=== PATIENT | female | born 1950 | race American Indian/Alaskan Native ===

== ENCOUNTER 2019-07-15 23:21 | Inpatient (IN) | payer MEDICARE ==
[2019-07-15] MEDS ORDERED: IPRATROPIUM 0.02% NEBU 2.5 ML IH ONE (23:36)
[2019-07-15] MEDS ORDERED: ALBUTEROL 2.5 MG/3 ML NEBU IH ONE (23:36)
[2019-07-15] MEDS ORDERED: MAGNESIUM SULFATE 2 GM/50 ML BAG IV ONE (23:37)
[2019-07-15] MEDS ORDERED: methylPREDNISolone Sod Succinate 125 MG/2 ML INJ IV ONE (23:37)
--- NOTE | 2019-07-15 23:44 | Emergency Department Report ---
HPI - General Time Seen by Provider: 07/15/19 23:29 - HPI HPI: Room 2 The patient is a 69-year-old female presenting with a chief complaint of shortness of breath. The patient states she's had progressively worsening shortness of breath over the past 2-3 weeks. Patient denies cough or chest pain. Patient states her home oxygen stop working and EMS was called. EMS states the patient was tachypneic was initially placed on CPAP and her symptoms improved. Location: [See above] Duration: [See above] Quality: [See above] Severity: [See above] Timing: [See above] Context: [See above] Modifying factors: [See above] Associated signs and symptoms: [see above] ED Past Medical Hx - Past Medical History Hx Hypertension: Yes Hx Congestive Heart Failure: Yes Hx Diabetes: Yes Hx of Cancer: Yes (breast CA status post mastectomy) Hx Asthma: Yes Hx COPD: Yes (normally 2-3 L home O2) Hx Dementia: Yes Additional medical history: breast cancer/MATT - Surgical History Hx Breast Surgery: Yes (R mastectomy) - Family History Family history: no significant - Social History Smoking Status: Unknown if ever smoked Substance Use Type: None - Medications Home Medications: Home Medications Medication Instructions Recorded Confirmed Last Taken Type Aspirin 325 mg PO QDAY 06/14/19 06/14/19 Unknown History Atorvastatin [Lipitor] 40 mg PO QHS 06/14/19 06/14/19 Unknown History Furosemide [Lasix TAB] 40 mg PO QDAY #30 tablet 06/14/19 Unknown Rx Metoprolol [Lopressor TAB] 25 mg PO BID #60 tablet 06/14/19 Unknown Rx Spironolactone [Aldactone] 50 mg PO DAILY 06/14/19 06/14/19 Unknown History lisinopriL [Zestril TAB] 10 mg PO QDAY #30 tablet 06/14/19 Unknown Rx ED Review of Systems ROS: Stated complaint: KALEB Other details as noted in HPI Constitutional: no symptoms reported Eyes: denies: eye pain ENT: denies: throat pain Respiratory: shortness of breath. denies: cough Cardiovascular: denies: chest pain Endocrine: no symptoms reported Gastrointestinal: denies: abdominal pain Genitourinary: denies: dysuria Musculoskeletal: denies: back pain Neurological: denies: headache Physical Exam - Physical Exam Physical Exam: GENERAL: The patient is well-developed well-nourished female sitting on stretcher exhibiting increased work of breathing. [] HEENT: Normocephalic. Atraumatic. Extraocular motions are intact. Patient has moist mucous membranes. NECK: Supple. Trachea midline CHEST/LUNGS: Diminished breath sounds at bilateral bases. No wheezing auscultated. There is increased work of breathing HEART/CARDIOVASCULAR: Regular. There is tachycardia. There is no gallop rub or murmur. ABDOMEN: Abdomen is soft, nontender. Patient has normal bowel sounds. There is no abdominal distention. SKIN: There is no rash. There is 1+ bilateral lower extremity pitting edema. There is no diaphoresis. NEURO: The patient is awake, alert, and oriented. The patient is cooperative. The patient has normal speech MUSCULOSKELETAL: There is no evidence of acute injury. ED Medical Decision Making - Lab Data Result diagrams: 07/15/19 23:41 07/15/19 23:41 Laboratory Tests 07/15/19 07/15/19 23:41 23:41 WBC 5.3 RBC 4.80 Hgb 12.7 Hct 39.8 MCV 83 MCH 26 L MCHC 32 RDW 18.0 H Plt Count 167 Lymph % (Auto) 38.2 H Coal % (Auto) 11.7 H Eos % (Auto) 1.9 Baso % (Auto) 0.8 Lymph # 2.0 Coal # 0.6 Eos # 0.1 Baso # 0.0 Seg Neutrophils % 47.4 Seg Neutrophils # 2.5 Sodium 142 Potassium 3.7 Chloride 104.5 Carbon Dioxide 22 Anion Gap 19 BUN 15 Creatinine 1.1 Estimated GFR 59 BUN/Creatinine Ratio 14 Glucose 177 H Calcium 9.4 Total Creatine Kinase 65 CK-MB (CK-2) 1.9 CK-MB (CK-2) Rel Index 2.9 Troponin T < 0.010 NT-Pro-B Natriuret Pep 03248 H - EKG Data -: EKG Interpreted by Me EKG shows normal: sinus rhythm Rate: tachycardia (115 bpm) - EKG Data When compared to previous EKG there are: no significant change Interpretation: unchanged when compared t (06/11/2019) - Radiology Data Radiology results: report reviewed (chest x-ray), image reviewed (chest x-ray) interpreted by me: Chest x-ray-[facility] [address] [place] [address] XRay Report Signed Patient: CONSUELO SHOOK MR#: [id number] [birth year] Acct:[id number] Age/Sex: 69 / F ADM Date: 07/15/19 Loc: ED Attending Dr: Ordering Physician: SALLY BARNARD MD Date of Service: 07/15/19 Procedure(s): XR chest 1V ap Accession Number(s): [id number] cc: SALLY BARNARD MD Fluoro Time In Minutes: CHEST 1 VIEW 07/15/2019 11:35 PM INDICATION / CLINICAL INFORMATION: sob. COMPARISON: One view of the chest from 06/12/2019. FINDINGS: SUPPORT DEVICES: None. HEART / MEDIASTINUM: Stable. LUNGS / PLEURA: Lung volumes are mildly reduced with generalized bilateral opacities. No significant pleural effusion. No pneumothorax. ADDITIONAL FINDINGS: Clips are again seen along the right axilla. No significant additional findings. IMPRESSION: Bilateral pulmonary opacities may represent atelectasis/edema. Signer Name: Yaakov Huynh MD Signed: 07/15/2019 11:55 PM Workstation Name: [id number] Transcribed By: MN Dictated By: Yaakov Huynh MD Electronically Authenticated By: Yaakov Huynh MD Signed Date/Time: 07/15/192354 DD/ 53 TD/TT: - Differential Diagnosis CHF exacerbation, COPD exacerbation, pneumonia Critical care attestation.: If time is entered above; I have spent that time in minutes in the direct care of this critically ill patient, excluding procedure time. ED Disposition Clinical Impression: Shortness of breath, CHF exacerbation Disposition: - OP ADMIT IP TO THIS HOSP Is pt being admited?: Yes Does the pt Need Aspirin: No Condition: Fair Time of Disposition: 00:48 (hospitalist paged (Dr Resendiz))
--- NOTE | 2019-07-15 23:59 | XRay Report ---
CHEST 1 VIEW 07/15/2019 11:35 PM INDICATION / CLINICAL INFORMATION: sob. COMPARISON: One view of the chest from 06/12/2019. FINDINGS: SUPPORT DEVICES: None. HEART / MEDIASTINUM: Stable. LUNGS / PLEURA: Lung volumes are mildly reduced with generalized bilateral opacities. No significant pleural effusion. No pneumothorax. ADDITIONAL FINDINGS: Clips are again seen along the right axilla. No significant additional findings. IMPRESSION: Bilateral pulmonary opacities may represent atelectasis/edema. Signer Name: Yaakov Huynh MD Signed: 07/15/2019 11:55 PM Workstation Name: [id number]
[2019-07-16] LABS: Basophils % (Auto) 0.8 % (0.0-1.8); Eosinophils # (Auto) 0.1 K/mm3 (0.0-0.4); Eosinophils % (Auto) 1.9 % (0.0-4.3); Hematocrit 39.8 % (30.3-42.9); Hemoglobin 12.7 gm/dl (10.1-14.3); Lymphocytes % (Auto) 38.2 % (13.4-35.0); Mean Corpuscular HGB Conc 32 % (30-34); Mean Corpuscular Volume 83 fl (79-97); Monocytes # (Auto) 0.6 K/mm3 (0.0-0.8); Monocytes % (Auto) 11.7 % (0.0-7.3); Platelet Count 167 K/mm3 (140-440)
[2019-07-16] MEDS ORDERED: FUROSEMIDE 40 MG/4 ML INJ IV ONE (00:08)
[2019-07-16 00:18] LABS: Creatine Kinase MB 1.9 ng/mL (0.0-4.0)
[2019-07-16 00:19] LABS: BUN/Creatinine Ratio 14; Blood Urea Nitrogen 15 mg/dL (7-17); Calcium 9.4 mg/dL (8.4-10.2); Hemolysis Index 49
[2019-07-16] MEDS ORDERED: ALBUTEROL 2.5 MG/3 ML NEBU IH PRN (01:38)
[2019-07-16] MEDS ORDERED: ACETAMINOPHEN 325 MG TAB PO PRN (01:38)
[2019-07-16] MEDS ORDERED: ONDANSETRON 4 MG/2 ML INJ IV PRN (01:38)
[2019-07-16] MEDS ORDERED: DEXTROSE 50% IN WATER (25GM) 50 ML SYRINGE IV PRN (01:38)
[2019-07-16] MEDS ORDERED: oxyCODONE /ACETAMINOPHEN 5-325MG TAB PO PRN (01:38)
--- NOTE | 2019-07-16 01:47 | History and Physical Report ---
History of Present Illness Date of examination: 07/16/19 Date of admission: 07/16/19 Chief complaint: Difficulty breathing History of present illness: Patient is a 69-year-old female with a past medical history of hypertension, CHF, diabetes, asthma and COPD dependent on 2 L home oxygen who presents to ER with complaints of difficulty in breathing. Patient reports cough and shortness of breath x1 month with worsening dyspnea on exertion over the past 2 days. She was transported to [facility] via EMS, for increased work of breathing, on their arrival she was was put on BiPaP. Review of records 06/11/2019 showed patient was recently admitted with an EF 25-30%, noncompliant with treatment regimen, refused life vest on discharge and intubated on admission when she presented with acute respiratory failure. Past History Past Medical History: other (As noted in HPI) Past Surgical History: Other (R mastectomy) Social history: lives with family Family history: CAD, hypertension Medications and Allergies Allergies Allergy/AdvReac Type Severity Reaction Status Date / Time No Known Allergies Allergy Verified 06/12/19 17:57 Home Medications Medication Instructions Recorded Confirmed Last Taken Type Aspirin 325 mg PO QDAY 06/14/19 06/14/19 Unknown History Atorvastatin [Lipitor] 40 mg PO QHS 06/14/19 06/14/19 Unknown History Furosemide [Lasix TAB] 40 mg PO QDAY #30 tablet 06/14/19 Unknown Rx Metoprolol [Lopressor TAB] 25 mg PO BID #60 tablet 06/14/19 Unknown Rx Spironolactone [Aldactone] 50 mg PO DAILY 06/14/19 06/14/19 Unknown History lisinopriL [Zestril TAB] 10 mg PO QDAY #30 tablet 06/14/19 Unknown Rx Active Meds: Active Medications Acetaminophen (Tylenol) 650 mg PO Q4H PRN PRN Reason: Pain MILD(1-3)/Fever >100.5/PIERSON Albuterol (Proventil) 2.5 mg IH Q3HRT PRN PRN Reason: Shortness Of Breath Albuterol/Ipratropium (Duoneb *Not For Prn Use*) 1 ampul IH Q6HRT [facility] Dextrose (D50w (25gm) Syringe) 50 ml IV Q30MIN PRN; Protocol PRN Reason: Hypoglycemia Famotidine (Pepcid) 20 mg IV BID [facility] Furosemide (Lasix) 40 mg IV BID@0600,1800 [facility] Insulin Human Lispro (Humalog) 0 unit SUB-Q ACHS [facility]; Protocol Ondansetron HCl (Zofran) 4 mg IV Q8H PRN PRN Reason: Nausea And Vomiting Oxycodone/Acetaminophen (Percocet 5/325) 1 tab PO Q6H PRN PRN Reason: Pain, Moderate (4-6) Review of Systems All systems: negative Respiratory: cough, shortness of breath, dyspnea on exertion, home oxygen Exam - Physical Exam Narrative exam: - Physical Exam Narrative exam: General appearance: Present: Moderate distress noted - EENT Eyes: Present: PERRL ENT: hearing intact, clear oral mucosa - Neck Neck: Present: supple, normal ROM - Respiratory Respiratory effort: Labored Respiratory: bilateral: Diminished - Cardiovascular Heart Sounds: Present: S1 & S2. Absent: rub, click - Extremities Extremities: pulses symmetrical, No edema Peripheral Pulses: within normal limits - Abdominal General gastrointestinal: Present: , non-distended, normal bowel sounds genitourinary: Present: normal - Integumentary Integumentary: Present: clear, warm, dry - Musculoskeletal Musculoskeletal: gait normal, strength equal bilaterally - Psychiatric Psychiatric: appropriate mood/affect, intact judgment & insight - Neurologic Neurologic: CNII-XII intact, moves all extremities - Constitutional Vitals: Temp Pulse Resp BP Pulse Ox 96.3 F L 98 H 34 H 168/106 100 07/15/19 23:54 07/15/19 23:55 07/15/19 23:55 07/15/19 23:54 07/15/19 23:54 Results - Labs CBC & Chem 7: 07/15/19 23:41 07/15/19 23:41 Labs: Laboratory Last Values WBC 5.3 K/mm3 (4.5-11.0) 07/15/19 23:41 RBC 4.80 M/mm3 (3.65-5.03) 07/15/19 23:41 Hgb 12.7 gm/dl (10.1-14.3) 07/15/19 23:41 Hct 39.8 % (30.3-42.9) 07/15/19 23:41 MCV 83 fl (79-97) 07/15/19 23:41 MCH 26 pg (28-32) L 07/15/19 23:41 MCHC 32 % (30-34) 07/15/19 23:41 RDW 18.0 % (13.2-15.2) H 07/15/19 23:41 Plt Count 167 K/mm3 (140-440) 07/15/19 23:41 Lymph % (Auto) 38.2 % (13.4-35.0) H 07/15/19 23:41 Dickenson % (Auto) 11.7 % (0.0-7.3) H 07/15/19 23:41 Eos % (Auto) 1.9 % (0.0-4.3) 07/15/19 23:41 Baso % (Auto) 0.8 % (0.0-1.8) 07/15/19 23:41 Lymph # 2.0 K/mm3 (1.2-5.4) 07/15/19 23:41 Dickenson # 0.6 K/mm3 (0.0-0.8) 07/15/19 23:41 Eos # 0.1 K/mm3 (0.0-0.4) 07/15/19 23:41 Baso # 0.0 K/mm3 (0.0-0.1) 07/15/19 23:41 Seg Neutrophils % 47.4 % (40.0-70.0) 07/15/19 23:41 Seg Neutrophils # 2.5 K/mm3 (1.8-7.7) 07/15/19 23:41 Sodium 142 mmol/L (137-145) 07/15/19 23:41 Potassium 3.7 mmol/L (3.6-5.0) 07/15/19 23:41 Chloride 104.5 mmol/L (98-107) 07/15/19 23:41 Carbon Dioxide 22 mmol/L (22-30) 07/15/19 23:41 Anion Gap 19 mmol/L 07/15/19 23:41 BUN 15 mg/dL (7-17) 07/15/19 23:41 Creatinine 1.1 mg/dL (0.7-1.2) 07/15/19 23:41 Estimated GFR 59 ml/min 07/15/19 23:41 BUN/Creatinine Ratio 14 % 07/15/19 23:41 Glucose 177 mg/dL (65-100) H 07/15/19 23:41 Calcium 9.4 mg/dL (8.4-10.2) 07/15/19 23:41 Total Creatine Kinase 65 units/L (30-135) 07/15/19 23:41 CK-MB (CK-2) 1.9 ng/mL (0.0-4.0) 07/15/19 23:41 CK-MB (CK-2) Rel Index 2.9 (0-4) 07/15/19 23:41 Troponin T < 0.010 ng/mL (0.00-0.029) 07/15/19 23:41 NT-Pro-B Natriuret Pep 96928 pg/mL (0-900) H 07/15/19 23:41 - Imaging and Cardiology Imaging and Cardiology: CHEST 1 VIEW 07/15/2019 11:35 PM INDICATION / CLINICAL INFORMATION: sob. COMPARISON: One view of the chest from 06/12/2019. FINDINGS: SUPPORT DEVICES: None. HEART / MEDIASTINUM: Stable. LUNGS / PLEURA: Lung volumes are mildly reduced with generalized bilateral opacities. No significant pleural effusion. No pneumothorax. ADDITIONAL FINDINGS: Clips are again seen along the right axilla. No significant additional findings. IMPRESSION: Bilateral pulmonary opacities may represent atelectasis/edema. Assessment and Plan Assessment and plan: CHF exacerbation -BNP [id number] -Monitor input and output. -IV diuretics, supportive care -Cardiology consult -Echocardiogram ordered-EF 20-25% seen on Echo 06/12/2019 -Home meds once reconciled COPD - Scheduled nebs, breathing treatment and as needed, empiric steroid - Supplemental oxygen to keep oxygen saturation above 92% - Consider to consult pulmonary if no improvement in next 24 hours SIRS -CXR; Bilateral pulmonary opacities may represent atelectasis/edema -Tachycardic with heart rate 113 bpm -Respiratory rate 34 -May be due to inflammatory -Follow up on labs -Continue supportive care DM -POC BG monitoring -SSI coverage prn Hypertensive urgency -BP on admission 168/106 -Hx Hypertension -Continue to monitor BP -Resume home antihypertensive meds to optimize BP -IV antihypertensive when necessary Medical noncompliance; -Patient strongly advised complaincew w/ medications, diet and follow-up visits -Verbalized understanding DVT prophylaxis -SCDs bilateral extremities Advance Directives: No VTE prophylaxis?: Chemical Plan of care discussed with patient/family: Yes
[2019-07-16] MEDS ORDERED: IPRATROPIUM/ALBUTEROL SULFATE 3 ML AMPUL.NEB IH ONE (02:56)
[2019-07-16] MEDS: IPRATROPIUM/ALBUTEROL SULFATE 3 ML AMPUL.NEB IH SCH ×4 (02:56→20:27)
[2019-07-16] MEDS: FUROSEMIDE 40 MG/4 ML INJ IV SCH ×2 (05:50→17:50)
[2019-07-16] MEDS: FAMOTIDINE 20 MG/2 ML INJ IV SCH ×2 (09:48→21:33)
[2019-07-16] MEDS: INSULIN LISPRO 100 UNIT/ML SUB-Q SCH ×4 (09:48→21:33)
--- NOTE | 2019-07-16 10:38 | Consultation ---
History of Present Illness Consult date: 07/16/19 Requesting physician: ELHAM SLOAN Consult reason: congestive heart failure History of present illness: The pt is a 69 YO female with a past medical history of HTN, HLP, HFrEF, NICMP, nonobstructive CAD, LBBB, asthma, medical noncompliance. She has been seen by our practice on prior hospitalization. She presented with c/o progressively worsening SOB, CALDERA, orthopnea and cough for approx 1 month prior to arrival with worsening of symptoms for 2 days prior to arrival. Following arrival, pt found to be in acute on chronic respiratory failure and placed on BiPAP. She remains on BiPAP on evaluation. CXR c/w HF. Pro-BNP >11K. Pt admits to noncompliance with her medication regimen - she has been intermittently taking "some of the pills". She does not think she has been taking lasix at home. She denies any occurrence of chest pain, palpitation, n/v, diaphoresis, dizziness or syncope. Lexiscan MPI stress test done 06/2019 was negative for ischemia, EF 20%. LHC done at [facility] on 05/2019 showed mod single vessel CAD involving prox LAD with negative IFR, EF 15-20%. Echo done 06/2019 showed EF 25-30%, grade 2 diastolic dysfunction, no significant valvular abnormalities. Past History Past Medical History: other (As noted in HPI) Past Surgical History: Other (R mastectomy) Social history: lives with family Family history: CAD, hypertension Medications and Allergies Allergies Allergy/AdvReac Type Severity Reaction Status Date / Time No Known Allergies Allergy Verified 06/12/19 17:57 Home Medications Medication Instructions Recorded Confirmed Last Taken Type Aspirin 325 mg PO QDAY 06/14/19 06/14/19 Unknown History Atorvastatin [Lipitor] 40 mg PO QHS 06/14/19 06/14/19 Unknown History Furosemide [Lasix TAB] 40 mg PO QDAY #30 tablet 06/14/19 Unknown Rx Metoprolol [Lopressor TAB] 25 mg PO BID #60 tablet 06/14/19 Unknown Rx Spironolactone [Aldactone] 50 mg PO DAILY 06/14/19 06/14/19 Unknown History lisinopriL [Zestril TAB] 10 mg PO QDAY #30 tablet 06/14/19 Unknown Rx Active Meds: Active Medications Acetaminophen (Tylenol) 650 mg PO Q4H PRN PRN Reason: Pain MILD(1-3)/Fever >100.5/PIERSON Albuterol (Proventil) 2.5 mg IH Q3HRT PRN PRN Reason: Shortness Of Breath Albuterol/Ipratropium (Duoneb *Not For Prn Use*) 1 ampul IH Q6HRT [facility] Last Admin: 07/16/19 07:10 Dose: 1 ampul Documented by: Dextrose (D50w (25gm) Syringe) 0 ml IV Q30MIN PRN; Protocol PRN Reason: Hypoglycemia Famotidine (Pepcid) 20 mg IV BID [facility] Last Admin: 07/16/19 09:48 Dose: 20 mg Documented by: Furosemide (Lasix) 40 mg IV BID@0600,1800 [facility] Last Admin: 07/16/19 05:50 Dose: 40 mg Documented by: Insulin Human Lispro (Humalog) 0 unit SUB-Q ACHS [facility]; Protocol Last Admin: 07/16/19 09:48 Dose: 3 unit Documented by: Ondansetron HCl (Zofran) 4 mg IV Q8H PRN PRN Reason: Nausea And Vomiting Oxycodone/Acetaminophen (Percocet 5/325) 1 tab PO Q6H PRN PRN Reason: Pain, Moderate (4-6) Review of Systems Constitutional: no weight loss, no weight gain, no fever, no chills, no sweats Ears, nose, mouth and throat: no ear pain, no nose pain, no sinus pressure, no sinus pain Cardiovascular: orthopnea, shortness of breath, dyspnea on exertion, paroxysmal nocturnal dyspnea, high blood pressure, decreased exercise tolerance, no chest pain, no palpitations, no rapid/irregular heart beat, no edema, no syncope, no lightheadedness, no leg edema Respiratory: cough, shortness of breath, dyspnea on exertion, no congestion, no pain on inspiration Gastrointestinal: no abdominal pain, no nausea, no vomiting, no diarrhea, no constipation, no change in bowel habits Genitourinary Female: no pelvic pain, no flank pain, no dysuria, no urinary frequency, no urgency Musculoskeletal: no neck stiffness, no neck pain, no shooting arm pain, no arm numbness/tingling, no low back pain, no shooting leg pain Integumentary: no rash, no pruritis, no redness, no sores, no wounds Neurological: no head injury, no paralysis, no weakness, no parathesias, no numbness, no tingling, no seizures, no syncope Psychiatric: no anxiety Endocrine: no cold intolerance, no heat intolerance Hematologic/Lymphatic: no easy bruising, no easy bleeding Allergic/Immunologic: no urticaria Physical Examination Vital Signs Pulse Resp Pulse Ox 113 H 34 H 100 07/15/19 23:34 07/15/19 23:34 07/15/19 23:34 General appearance: no acute distress HEENT: Positive: PERRL, Normocephaly, Mucus Membranes Moist Neck: Positive: neck supple, trachea midline Cardiac: Positive: Reg Rate and Rhythm, S1/S2 Lungs: Positive: Decreased Breath Sounds, Oxygen, Ventilated Respirations Neuro: Positive: Grossly Intact Abdomen: Negative: Tender Skin: Negative: Rash Musculoskeletal: No Pain Extremities: Absent: edema Results 07/15/19 23:41 07/15/19 23:41 Cardiac Enzymes 07/15/19 Range/Units 23:41 CK-MB (CK-2) 1.9 (0.0-4.0) ng/mL CBC 07/15/19 Range/Units 23:41 WBC 5.3 (4.5-11.0) K/mm3 RBC 4.80 (3.65-5.03) M/mm3 Hgb 12.7 (10.1-14.3) gm/dl Hct 39.8 (30.3-42.9) % Plt Count 167 (140-440) K/mm3 Lymph # 2.0 (1.2-5.4) K/mm3 Love # 0.6 (0.0-0.8) K/mm3 Eos # 0.1 (0.0-0.4) K/mm3 Baso # 0.0 (0.0-0.1) K/mm3 Comprehensive Metabolic Panel 07/15/19 Range/Units 23:41 Sodium 142 (137-145) mmol/L Potassium 3.7 (3.6-5.0) mmol/L Chloride 104.5 (98-107) mmol/L Carbon Dioxide 22 (22-30) mmol/L BUN 15 (7-17) mg/dL Creatinine 1.1 (0.7-1.2) mg/dL Glucose 177 H (65-100) mg/dL Calcium 9.4 (8.4-10.2) mg/dL - Imaging and Cardiology Echo: report reviewed (06/2019 showed EF 25-30%, grade 2 diastolic dysfunction, no significant valvular abnormalities. ) Cardiac cath: report reviewed (done at [facility] on 05/2019 showed mod single vessel CAD involving prox LAD with negative IFR, EF 15-20%. ) EKG: report reviewed, image reviewed EKG interpretations - Telemetry EKG Rhythm: Sinus Rhythm - EKG Sinus rhythms and dysrhythmias: sinus rhythm AV and intraventricular conduction: left bundle branch block Assessment and Plan Agree with IV lasix BID. Initiate GDMT for HFrEF and titrate as tolerated. Compliance with medical therapy encouraged. Will also obtain dietitian consultation for HF and fluid restriction diet education. Consider pulmonary consultation in setting of acute on ? chronic respiratory failure. Of note, cardiac defibrillator has been recommended to pt on multiple encounters in setting of NICMP. Pt declines LifeVest and wishes to readdress AICD candidacy as OP - although she has been noncompliant with OP follow up thus far. The patient has been seen in conjunction with Dr. James who agrees with the assessment and plan of care. - Patient Problems (1) Acute HFrEF (heart failure with reduced ejection fraction) Current Visit: Yes Status: Acute (2) Nonischemic cardiomyopathy Current Visit: Yes Status: Chronic (3) LBBB (left bundle branch block) Current Visit: Yes Status: Chronic (4) Acute respiratory failure Current Visit: Yes Status: Acute (5) Uncontrolled hypertension Current Visit: Yes Status: Chronic (6) History of asthma Current Visit: Yes Status: Chronic (7) Hyperlipidemia Current Visit: Yes Status: Chronic (8) Medically noncompliant Current Visit: Yes Status: Chronic
[2019-07-16] MEDS: METOPROLOL SUCCINATE XL 50 MG TAB PO SCH (13:22)
--- NOTE | 2019-07-16 14:53 | Event Note ---
69-year-old woman with a past medical history of severe CHF, chronic respiratory failure on 2 L of oxygen at home. The patient has worsening dementia, she lives with her brothers. States that they are not taking care of her, did not take her to the pharmacy to get her medications. Spoke to the patient with a daughter in the bedroom. The daughter with like to consider taking her to her place. The patient was previously refusing, but she is now agreeable to it, because she realizes that she is in and out of hospital due to uncontrolled heart failure. Discussed CODE STATUS. Patient would like to be full code, she would like to be evaluated for ICD, she admits that she refused that many times previously. She is also very forgetful due to dementia. Her daughter would like APS report to be made on the brothers that the patient resides with. Discussed with case management. PT to see patient. Patient has history of MATT, has not used CPAP in quite a while because she no longer has the machine. Advised that she needs to follow-up with pulmonary as an outpatient, she will need sleep study. Family requesting STD testing including gonorrhea chlamydia hepatitis and HIV. They have been ordered. Acute on chronic CHF, systolic heart failure, continue diuretics, optimize meds. Reconsulted cardiology about ICD. Chronic hypoxic respiratory failure; continue oxygen Diabetes with persistent hyperglycemia Obtain A1c, optimize insulins. Patient reports being very sad and depressed Mental health consult Patient would like to make her children high next of kin and to allow them to make decisions for her when she is not able to make decisions for herself. Spoke to case management about making the patient's children her proxies. Preventative health counseling performed for 17 minutes Advanced care planning performed for over 30 minutes
[2019-07-16 16:09] LABS: Hepatitis B Surface Antigen Non-Reactive (Negative); Hepatitis C Virus Antibody Non-Reactive (NonReactive)
[2019-07-17] MEDS: IPRATROPIUM/ALBUTEROL SULFATE 3 ML AMPUL.NEB IH SCH ×4 (03:23→21:24)
[2019-07-17 04:56] LABS: Basophils # (Auto) 0.1 K/mm3 (0.0-0.1); Basophils % (Auto) 0.8 % (0.0-1.8); Eosinophils # (Auto) 0.1 K/mm3 (0.0-0.4); Eosinophils % (Auto) 1.1 % (0.0-4.3); Hematocrit 34.4 % (30.3-42.9); Hemoglobin 11.2 gm/dl (10.1-14.3); Lymphocytes % (Auto) 32.8 % (13.4-35.0); Mean Corpuscular HGB Conc 32 % (30-34); Mean Corpuscular Volume 82 fl (79-97); Monocytes # (Auto) 0.7 K/mm3 (0.0-0.8); Monocytes % (Auto) 12.4 % (0.0-7.3); Platelet Count 187 K/mm3 (140-440); Red Cell Distribution Width 17.9 % (13.2-15.2)
[2019-07-17 05:16] LABS: BUN/Creatinine Ratio 24; Blood Urea Nitrogen 19 mg/dL (7-17); Calcium 8.9 mg/dL (8.4-10.2); Hemolysis Index 20
[2019-07-17] MEDS ORDERED: POTASSIUM CHLORIDE ER 20 MEQ TAB PO ONE (06:47)
[2019-07-17] MEDS: FUROSEMIDE 40 MG/4 ML INJ IV SCH (06:48)
[2019-07-17] MEDS: INSULIN LISPRO 100 UNIT/ML SUB-Q SCH ×4 (07:58→21:19)
[2019-07-17] MEDS: METOPROLOL SUCCINATE XL 50 MG TAB PO SCH (09:58)
[2019-07-17] MEDS: FAMOTIDINE 20 MG/2 ML INJ IV SCH ×2 (09:59→21:16)
[2019-07-17] MEDS: LOSARTAN 25 MG TAB PO SCH (09:59)
[2019-07-17] MEDS: SPIRONOLACTONE 25 MG TAB PO SCH (09:59)
[2019-07-17] MEDS ORDERED: LISINOPRIL 10 MG TAB PO SCH (10:00)
--- NOTE | 2019-07-17 10:08 | Progress Note ---
<CAMMYDESIRAE ZAMAN - Last Filed: 07/17/19 10:51> Assessment and Plan Pt appears to be nearing/at euvolemia. Replete K+. Convert IV lasix to PO lasix. Cont coreg, losartan, aldactone. Plan to evaluate for AICD candidacy as OP. Anticipate d/c in AM. The patient has been seen in conjunction with Dr. James who agrees with the assessment and plan of care. - Patient Problems (1) Acute HFrEF (heart failure with reduced ejection fraction) Current Visit: Yes Status: Acute (2) Nonischemic cardiomyopathy Current Visit: Yes Status: Chronic (3) LBBB (left bundle branch block) Current Visit: Yes Status: Chronic (4) Acute respiratory failure Current Visit: Yes Status: Acute (5) Uncontrolled hypertension Current Visit: Yes Status: Chronic (6) History of asthma Current Visit: Yes Status: Chronic (7) Hyperlipidemia Current Visit: Yes Status: Chronic (8) Medically noncompliant Current Visit: Yes Status: Chronic (9) Hypokalemia Current Visit: Yes Status: Acute Subjective Date of service: 07/17/19 Principal diagnosis: HF Interval history: pt laying flat comfortably in bed, on room air, no current complaints. in SR on tele with [employer] PACs. no family at bedside. Objective Last Vital Signs Temp 97.5 F L 07/17/19 08:23 Pulse 64 07/17/19 08:28 Resp 18 07/17/19 08:23 BP 133/73 07/17/19 08:23 Pulse Ox 99 07/17/19 08:23 - Physical Examination General: No Apparent Distress HEENT: Positive: PERRL, Normocephaly, Mucus Membranes Moist Neck: Positive: neck supple, trachea midline Cardiac: Positive: Reg Rate and Rhythm, S1/S2 Lungs: Positive: Decreased Breath Sounds Neuro: Positive: Grossly Intact Abdomen: Negative: Tender Skin: Negative: Rash Musculoskeletal: No Pain Extremities: Absent: edema - Labs and Meds CBC 07/17/19 Range/Units 04:14 WBC 6.0 (4.5-11.0) K/mm3 RBC 4.20 (3.65-5.03) M/mm3 Hgb 11.2 (10.1-14.3) gm/dl Hct 34.4 (30.3-42.9) % Plt Count 187 (140-440) K/mm3 Lymph # 2.0 (1.2-5.4) K/mm3 [place] # 0.7 (0.0-0.8) K/mm3 Eos # 0.1 (0.0-0.4) K/mm3 Baso # 0.1 (0.0-0.1) K/mm3 Comprehensive Metabolic Panel 07/17/19 Range/Units 04:14 Sodium 143 (137-145) mmol/L Potassium 2.9 L* D (3.6-5.0) mmol/L Chloride 101.9 (98-107) mmol/L Carbon Dioxide 27 (22-30) mmol/L BUN 19 H (7-17) mg/dL Creatinine 0.8 (0.7-1.2) mg/dL Glucose 110 H (65-100) mg/dL Calcium 8.9 (8.4-10.2) mg/dL - Imaging and Cardiology EKG: report reviewed, image reviewed Echo: report reviewed (06/2019 showed EF 25-30%, grade 2 diastolic dysfunction, no significant valvular abnormalities. 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 ) - EKG Sinus rhythms and dysrhythmias: sinus rhythm AV and intraventricular conduction: left bundle branch block <CARMEN JAMES R - Last Filed: 07/17/19 11:34> Assessment and Plan hypokalemia, replace and check mg level Objective Vital Signs Temp Pulse Pulse Resp Resp BP Pulse Ox 07/17/19 08:28 64 07/17/19 08:23 97.5 F L 74 18 133/73 99 07/17/19 07:50 98 07/17/19 07:49 59 L 16 07/17/19 06:00 64 07/17/19 03:09 98.2 F 64 18 131/74 100 07/17/19 00:28 68 27 H 100 07/17/19 00:00 98.1 F 59 L 18 127/70 100 07/16/19 22:43 96 07/16/19 20:31 98 07/16/19 20:28 62 18 07/16/19 19:41 98.4 F 65 18 130/66 100 07/16/19 16:46 97.8 F 65 20 124/69 100 07/16/19 14:00 82 07/16/19 13:25 73 20 07/16/19 13:22 89 158/93 07/16/19 12:20 96 07/16/19 12:15 98.9 F 91 H 18 158/93 100 - Labs and Meds CBC 07/17/19 Range/Units 04:14 WBC 6.0 (4.5-11.0) K/mm3 RBC 4.20 (3.65-5.03) M/mm3 Hgb 11.2 (10.1-14.3) gm/dl Hct 34.4 (30.3-42.9) % Plt Count 187 (140-440) K/mm3 Lymph # 2.0 (1.2-5.4) K/mm3 [place] # 0.7 (0.0-0.8) K/mm3 Eos # 0.1 (0.0-0.4) K/mm3 Baso # 0.1 (0.0-0.1) K/mm3 Comprehensive Metabolic Panel 07/17/19 Range/Units 04:14 Sodium 143 (137-145) mmol/L Potassium 2.9 L* D (3.6-5.0) mmol/L Chloride 101.9 (98-107) mmol/L Carbon Dioxide 27 (22-30) mmol/L BUN 19 H (7-17) mg/dL Creatinine 0.8 (0.7-1.2) mg/dL Glucose 110 H (65-100) mg/dL Calcium 8.9 (8.4-10.2) mg/dL
[2019-07-17] MEDS ORDERED: POTASSIUM CHLORIDE ER 20 MEQ TAB PO SCH (10:30)
--- NOTE | 2019-07-17 10:59 | Consultation ---
History of Present Illness Consult date: 07/17/19 Requesting physician: CANDACE BETANCOURT Reason for consult: COPD History of present illness: 69 y/o female, known to me as we saw her last admission for acute respiratory failure secondary to pulmonary edema and volume overload. Patient has had several admissions to the hospitals in the last few months ([facility] and [facility]). She suffers from obstructive lung disease and is suppose to follow with the [facility] in [place]. She has yet to do so. PFT's done there confirm this. She also suffers from systolic heart failure. Admitted this time with volume overload and required bipap therapy which she has been weaned off of. Pulmonary consulted for this. Past History Past Medical History: COPD, heart failure Past Surgical History: Other (R mastectomy) Social history: lives with family Family history: CAD, hypertension Medications and Allergies Allergies Allergy/AdvReac Type Severity Reaction Status Date / Time No Known Allergies Allergy Verified 06/12/19 17:57 Home Medications Medication Instructions Recorded Confirmed Last Taken Type Aspirin 325 mg PO QDAY 06/14/19 07/17/19 Unknown History Atorvastatin [Lipitor] 40 mg PO QHS 06/14/19 07/17/19 Unknown History Furosemide [Lasix TAB] 40 mg PO QDAY #30 tablet 06/14/19 07/17/19 Unknown Rx Metoprolol [Lopressor TAB] 25 mg PO BID #60 tablet 06/14/19 07/17/19 Unknown Rx Spironolactone [Aldactone] 50 mg PO DAILY 06/14/19 07/17/19 Unknown History lisinopriL [Zestril TAB] 10 mg PO QDAY #30 tablet 06/14/19 07/17/19 Unknown Rx Active Meds: Active Medications Acetaminophen (Tylenol) 650 mg PO Q4H PRN PRN Reason: Pain MILD(1-3)/Fever >100.5/PIERSON Albuterol (Proventil) 2.5 mg IH Q3HRT PRN PRN Reason: Shortness Of Breath Albuterol/Ipratropium (Duoneb *Not For Prn Use*) 1 ampul IH Q6HRT [facility] Last Admin: 07/17/19 07:45 Dose: 1 ampul Documented by: Dextrose (D50w (25gm) Syringe) 0 ml IV Q30MIN PRN; Protocol PRN Reason: Hypoglycemia Famotidine (Pepcid) 20 mg IV BID [facility] Last Admin: 07/17/19 09:59 Dose: 20 mg Documented by: Furosemide (Lasix) 40 mg PO 0600,1800 [facility] Insulin Human Lispro (Humalog) 0 unit SUB-Q ACHS [facility]; Protocol Last Admin: 07/17/19 07:58 Dose: Not Given Documented by: Losartan Potassium (Cozaar) 25 mg PO QDAY [facility] Last Admin: 07/17/19 09:59 Dose: 25 mg Documented by: Metoprolol Succinate (Metoprolol Xl) 50 mg PO QDAY [facility] Last Admin: 07/17/19 09:58 Dose: 50 mg Documented by: Ondansetron HCl (Zofran) 4 mg IV Q8H PRN PRN Reason: Nausea And Vomiting Oxycodone/Acetaminophen (Percocet 5/325) 1 tab PO Q6H PRN PRN Reason: Pain, Moderate (4-6) Potassium Chloride (K-Dur) 40 meq PO ONCE [facility] Stop: 07/17/19 13:00 Spironolactone (Aldactone) 25 mg PO QDAY [facility] Last Admin: 07/17/19 09:59 Dose: 25 mg Documented by: Review of Systems All systems: negative Physical Examination Vital signs: Vital Signs Pulse Resp Pulse Ox 113 H 34 H 100 07/15/19 23:34 07/15/19 23:34 07/15/19 23:34 General appearance: no acute distress, alert Eyes: non-icteric ENT: oropharynx moist Neck: supple Effort: normal Ascultation: Bilateral: rales (bases) Percussion: Bilateral: not dull Tactile fremitus: Bilateral: normal Cardiovascular: regular rate and rhythm Gastrointestinal: normoactive bowel sounds Results - Laboratory Findings CBC and BMP: 07/17/19 04:14 07/18/19 04:00 Abnormal lab findings: Abnormal Labs 07/15/19 07/15/19 07/16/19 23:41 23:41 07:46 MCH 26 L RDW 18.0 H Lymph % (Auto) 38.2 H [place] % (Auto) 11.7 H Potassium BUN Glucose 177 H POC Glucose 256 H Hemoglobin A1c NT-Pro-B Natriuret Pep 45825 H 07/16/19 07/16/19 07/16/19 11:28 16:10 20:14 MCH RDW Lymph % (Auto) [place] % (Auto) Potassium BUN Glucose POC Glucose 300 H 204 H 142 H Hemoglobin A1c NT-Pro-B Natriuret Pep 07/17/19 07/17/19 07/17/19 04:14 04:14 04:14 MCH 27 L RDW 17.9 H Lymph % (Auto) [place] % (Auto) 12.4 H Potassium 2.9 L* D BUN 19 H Glucose 110 H POC Glucose Hemoglobin A1c 6.8 H NT-Pro-B Natriuret Pep 07/17/19 08:36 MCH RDW Lymph % (Auto) [place] % (Auto) Potassium BUN Glucose POC Glucose 126 H Hemoglobin A1c NT-Pro-B Natriuret Pep - Diagnostic Findings Chest x-ray: image reviewed (Cardiomegaly with pulmonary vascular congestion) Assessment and Plan 69 y/o female with acute respiratory failure secondary to volume overload and CHF exacerbation. 1. Not currently in COPD exacerbation, no indication for systemic steroids 2. Needs to follow up with outpatient pulmonary group ([facility] at [facility]) 3. Diruesis as per cards 4. Need to assess need for oxygen again prior to discharge.
--- NOTE | 2019-07-17 12:39 | Progress Note ---
Assessment and Plan Assessment and plan: --Acute on chronic systolic CHF : EF 20 to 25% IV diuretics, beta-blockers, ANYA inhibitors, input output monitoring Low-sodium diet, fluid restriction,Cardiology evaluation --Acute on chronic resp failure ; patient claims she has home oxygen Patient required BiPAP at the time of admission Pulmonary following. Continue current management Evaluation for home oxygen at discharge -- COPD ; compensated Scheduled nebs, breathing treatment and as needed, empiric steroid Supplemental oxygen to keep oxygen saturation above 92% Consider to consult pulmonary if no improvement in next 24 hours --SIRS CXR; Bilateral pulmonary opacities may represent atelectasis/edema Tachycardic with heart rate 113 bpm, Respiratory rate 34 Continue supportive care --DM: Accu-Chek sliding scale coverage ADA diet and insulin as needed --Hypertensive urgency ; present on admission, improved -BP on admission 168/106 Continue antihypertensives and PRN medications --Medical noncompliance; Strongly advised to comply with medications diet follow-up visits Verbalized understanding --DVT prophylaxis: Lovenox SCDs Advance Directives: No VTE prophylaxis?: Chemical Plan of care discussed with patient/family: Yes History Interval history: Patient seen and examined medical records reviewed Patient complains of some shortness of breath Very minimal improvement since admission Denies chest pain Vital signs reviewed Hospitalist Physical - Constitutional Vitals: Temp Pulse Resp BP Pulse Ox 98.4 F 64 16 123/74 95 07/17/19 11:56 07/17/19 11:56 07/17/19 11:56 07/17/19 11:56 07/17/19 11:56 General appearance: Present: mild distress, well-nourished - EENT Eyes: Present: PERRL, EOM intact - Neck Neck: Present: supple, normal ROM - Respiratory Respiratory effort: normal Respiratory: bilateral: diminished, rales, negative: rhonchi, wheezing - Cardiovascular Rhythm: regular Heart Sounds: Present: S1 & S2 - Extremities Extremities: no ischemia Extremity abnormal: edema - Abdominal General gastrointestinal: soft, non-tender, non-distended, normal bowel sounds - Integumentary Integumentary: Present: clear, warm - Psychiatric Psychiatric: appropriate mood/affect, cooperative - Neurologic Neurologic: moves all extremities Results - Labs CBC & Chem 7: 07/17/19 04:14 07/18/19 04:00 Labs: Laboratory Last Values WBC 6.0 K/mm3 (4.5-11.0) 07/17/19 04:14 RBC 4.20 M/mm3 (3.65-5.03) 07/17/19 04:14 Hgb 11.2 gm/dl (10.1-14.3) 07/17/19 04:14 Hct 34.4 % (30.3-42.9) 07/17/19 04:14 MCV 82 fl (79-97) 07/17/19 04:14 MCH 27 pg (28-32) L 07/17/19 04:14 MCHC 32 % (30-34) 07/17/19 04:14 RDW 17.9 % (13.2-15.2) H 07/17/19 04:14 Plt Count 187 K/mm3 (140-440) 07/17/19 04:14 Lymph % (Auto) 32.8 % (13.4-35.0) 07/17/19 04:14 [place] % (Auto) 12.4 % (0.0-7.3) H 07/17/19 04:14 Eos % (Auto) 1.1 % (0.0-4.3) 07/17/19 04:14 Baso % (Auto) 0.8 % (0.0-1.8) 07/17/19 04:14 Lymph # 2.0 K/mm3 (1.2-5.4) 07/17/19 04:14 [place] # 0.7 K/mm3 (0.0-0.8) 07/17/19 04:14 Eos # 0.1 K/mm3 (0.0-0.4) 07/17/19 04:14 Baso # 0.1 K/mm3 (0.0-0.1) 07/17/19 04:14 Seg Neutrophils % 52.9 % (40.0-70.0) 07/17/19 04:14 Seg Neutrophils # 3.2 K/mm3 (1.8-7.7) 07/17/19 04:14 Sodium 143 mmol/L (137-145) 07/17/19 04:14 Potassium 2.9 mmol/L (3.6-5.0) L* D 07/17/19 04:14 Chloride 101.9 mmol/L (98-107) 07/17/19 04:14 Carbon Dioxide 27 mmol/L (22-30) 07/17/19 04:14 Anion Gap 17 mmol/L 07/17/19 04:14 BUN 19 mg/dL (7-17) H 07/17/19 04:14 Creatinine 0.8 mg/dL (0.7-1.2) 07/17/19 04:14 Estimated GFR > 60 ml/min 07/17/19 04:14 BUN/Creatinine Ratio 24 % 07/17/19 04:14 Glucose 110 mg/dL (65-100) H 07/17/19 04:14 POC Glucose 126 (70-105) H 07/17/19 08:36 Hemoglobin A1c 6.8 % (4-6) H 07/17/19 04:14 Calcium 8.9 mg/dL (8.4-10.2) 07/17/19 04:14 Total Creatine Kinase 65 units/L (30-135) 07/15/19 23:41 CK-MB (CK-2) 1.9 ng/mL (0.0-4.0) 07/15/19 23:41 CK-MB (CK-2) Rel Index 2.9 (0-4) 07/15/19 23:41 Troponin T < 0.010 ng/mL (0.00-0.029) 07/15/19 23:41 NT-Pro-B Natriuret Pep 23891 pg/mL (0-900) H 07/15/19 23:41 Syphilis IgG Antibody Non-reactive (NonReactive) 07/16/19 15:25 Hepatitis A IgM Ab Non-reactive (NonReactive) 07/16/19 15:25 Hep Bs Antigen Non-reactive (Negative) 07/16/19 15:25 Hep B Core IgM Ab Non-reactive (NonReactive) 07/16/19 15:25 Hepatitis C Antibody Non-reactive (NonReactive) 07/16/19 15:25 Active Medications - Current Medications Current Medications: Generic Name Dose Route Start Last Admin Trade Name Freq PRN Reason Stop Dose Admin Acetaminophen 650 mg 07/16/19 01:38 Tylenol PO Q4H PRN Pain MILD(1-3)/Fever >100.5/PIERSON Albuterol 2.5 mg 07/16/19 01:38 Proventil IH Q3HRT PRN Shortness Of Breath Albuterol/Ipratropium 1 ampul 07/16/19 02:00 07/17/19 07:45 Duoneb *Not For Prn Use* IH 1 ampul Q6HRT [facility] Administration Dextrose 0 ml 07/16/19 01:38 D50w (25gm) Syringe IV Q30MIN PRN Hypoglycemia Protocol Famotidine 20 mg 07/16/19 10:00 07/17/19 09:59 Pepcid IV 20 mg BID [facility] Administration Furosemide 40 mg 07/17/19 18:00 Lasix PO 0600,1800 [facility] Insulin Human Lispro 0 unit 07/16/19 07:30 07/17/19 07:58 Humalog SUB-Q Not Given ACHS [facility] Protocol Losartan Potassium 25 mg 07/17/19 10:00 07/17/19 09:59 Cozaar PO 25 mg QDAY [facility] Administration Metoprolol Succinate 50 mg 07/16/19 11:00 07/17/19 09:58 Metoprolol Xl PO 50 mg QDAY [facility] Administration Ondansetron HCl 4 mg 07/16/19 01:38 Zofran IV Q8H PRN Nausea And Vomiting Oxycodone/Acetaminophen 1 tab 07/16/19 01:38 Percocet 5/325 PO Q6H PRN Pain, Moderate (4-6) Potassium Chloride 40 meq 07/17/19 10:30 K-Dur PO 07/17/19 13:00 ONCE [facility] Spironolactone 25 mg 07/17/19 10:00 07/17/19 09:59 Aldactone PO 25 mg QDAY [facility] Administration Nutrition/Malnutrition Assess - Dietary Evaluation Nutrition/Malnutrition Findings: Nutrition Notes Start: 07/17/19 11:02 Freq: Status: Active Protocol: Document 07/17/19 11:02 CC (Rec: 07/17/19 11:14 CC [id number]) Co-Sign 07/17/19 11:02 LP Nutrition Notes Need for Assessment generated from: MD Order,Education Initial or Follow up Assessment Current Diagnosis COPD,Diabetes,Hypertension, Heart Failure Other Pertinent Diagnosis Dementia, pneu, asthma Current Diet Const CHO Labs/Tests K 2.9 BUN 19 HbA1c 6.8 Pertinent Medications Lasix Height 5 ft 2 in Weight 29 kg Usual Body Weight 90 kg [place] Body Weight (kg) 50.00 BMI 11.7 Intake Prior to Admission Good Weight change and time frame 20%/ unknown time frame Weight Status Overweight Subjective/Other Information MD consult for HF diet reccomendations. 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 Pt reported she has not lost any wt unintentionally but pt reported her UBW to be about 90kg. Pt reported she lives with her brother at the moment so she does not do the cooking. Pt reported she has not had previous diet education besides some general infomation given at senior centers. Observed pt bfast tray >75% consumed. Burn Absent Trauma Absent GI Symptoms Nausea Food Allergy No Current % PO Good (75-100%) Minimum of two criteria No #1 Nutrition Diagnosis Food and nutrition-related knowledge deficit Etiology no previous diet education As Evidenced by Signs and Symptoms pt report of no diet education , A1c 6.8 Is patient on ventilator? No Is Patient Ambulatory and/or Out of Bed Yes REE-([facility]-ambulatory/OOB) [ 985.725 NUTR.[id number]] Calculation Used for Recommendations [facility] Additional Notes Protein: 72-86g/day (1.0-1.2g/ kg) Fluid: 1500ml restriction Nutrition Intervention Change Diet Order: Const CHO/Cardiac Teaching Recipient Patient Learning Readiness Good Teaching Methods Discussion,Handout Response to Teaching Verbalize understanding Education Handouts Provided Heart Failure Nutrition Therapy, Heart Healthy Const. CHO Barriers to Learning Cognitive/Verbal RD phone number provided Yes Patient aware of follow up options Yes Goal #1 Meet at least 80% of energy and protein needs Anticipated Discharge Needs: cariac/const CHO Follow-Up By: 07/20/19 Additional Comments F/U for PO intakes
--- NOTE | 2019-07-17 12:40 | Progress Note ---
Hospitalist Physical - Constitutional Vitals: Temp Pulse Resp BP Pulse Ox 98.4 F 64 16 123/74 95 07/17/19 11:56 07/17/19 11:56 07/17/19 11:56 07/17/19 11:56 07/17/19 11:56 General appearance: Present: no acute distress Results - Labs CBC & Chem 7: 07/17/19 04:14 07/17/19 04:14 Labs: Laboratory Last Values WBC 6.0 K/mm3 (4.5-11.0) 07/17/19 04:14 RBC 4.20 M/mm3 (3.65-5.03) 07/17/19 04:14 Hgb 11.2 gm/dl (10.1-14.3) 07/17/19 04:14 Hct 34.4 % (30.3-42.9) 07/17/19 04:14 MCV 82 fl (79-97) 07/17/19 04:14 MCH 27 pg (28-32) L 07/17/19 04:14 MCHC 32 % (30-34) 07/17/19 04:14 RDW 17.9 % (13.2-15.2) H 07/17/19 04:14 Plt Count 187 K/mm3 (140-440) 07/17/19 04:14 Lymph % (Auto) 32.8 % (13.4-35.0) 07/17/19 04:14 [place] % (Auto) 12.4 % (0.0-7.3) H 07/17/19 04:14 Eos % (Auto) 1.1 % (0.0-4.3) 07/17/19 04:14 Baso % (Auto) 0.8 % (0.0-1.8) 07/17/19 04:14 Lymph # 2.0 K/mm3 (1.2-5.4) 07/17/19 04:14 [place] # 0.7 K/mm3 (0.0-0.8) 07/17/19 04:14 Eos # 0.1 K/mm3 (0.0-0.4) 07/17/19 04:14 Baso # 0.1 K/mm3 (0.0-0.1) 07/17/19 04:14 Seg Neutrophils % 52.9 % (40.0-70.0) 07/17/19 04:14 Seg Neutrophils # 3.2 K/mm3 (1.8-7.7) 07/17/19 04:14 Sodium 143 mmol/L (137-145) 07/17/19 04:14 Potassium 2.9 mmol/L (3.6-5.0) L* D 07/17/19 04:14 Chloride 101.9 mmol/L (98-107) 07/17/19 04:14 Carbon Dioxide 27 mmol/L (22-30) 07/17/19 04:14 Anion Gap 17 mmol/L 07/17/19 04:14 BUN 19 mg/dL (7-17) H 07/17/19 04:14 Creatinine 0.8 mg/dL (0.7-1.2) 07/17/19 04:14 Estimated GFR > 60 ml/min 07/17/19 04:14 BUN/Creatinine Ratio 24 % 07/17/19 04:14 Glucose 110 mg/dL (65-100) H 07/17/19 04:14 POC Glucose 126 (70-105) H 07/17/19 08:36 Hemoglobin A1c 6.8 % (4-6) H 07/17/19 04:14 Calcium 8.9 mg/dL (8.4-10.2) 07/17/19 04:14 Total Creatine Kinase 65 units/L (30-135) 07/15/19 23:41 CK-MB (CK-2) 1.9 ng/mL (0.0-4.0) 07/15/19 23:41 CK-MB (CK-2) Rel Index 2.9 (0-4) 07/15/19 23:41 Troponin T < 0.010 ng/mL (0.00-0.029) 07/15/19 23:41 NT-Pro-B Natriuret Pep 69254 pg/mL (0-900) H 07/15/19 23:41 Syphilis IgG Antibody Non-reactive (NonReactive) 07/16/19 15:25 Hepatitis A IgM Ab Non-reactive (NonReactive) 07/16/19 15:25 Hep Bs Antigen Non-reactive (Negative) 07/16/19 15:25 Hep B Core IgM Ab Non-reactive (NonReactive) 07/16/19 15:25 Hepatitis C Antibody Non-reactive (NonReactive) 07/16/19 15:25 Active Medications - Current Medications Current Medications: Generic Name Dose Route Start Last Admin Trade Name Freq PRN Reason Stop Dose Admin Acetaminophen 650 mg 07/16/19 01:38 Tylenol PO Q4H PRN Pain MILD(1-3)/Fever >100.5/PIERSON Albuterol 2.5 mg 07/16/19 01:38 Proventil IH Q3HRT PRN Shortness Of Breath Albuterol/Ipratropium 1 ampul 07/16/19 02:00 07/17/19 07:45 Duoneb *Not For Prn Use* IH 1 ampul Q6HRT [facility] Administration Dextrose 0 ml 07/16/19 01:38 D50w (25gm) Syringe IV Q30MIN PRN Hypoglycemia Protocol Famotidine 20 mg 07/16/19 10:00 07/17/19 09:59 Pepcid IV 20 mg BID [facility] Administration Furosemide 40 mg 07/17/19 18:00 Lasix PO 0600,1800 [facility] Insulin Human Lispro 0 unit 07/16/19 07:30 07/17/19 07:58 Humalog SUB-Q Not Given ACHS [facility] Protocol Losartan Potassium 25 mg 07/17/19 10:00 07/17/19 09:59 Cozaar PO 25 mg QDAY [facility] Administration Metoprolol Succinate 50 mg 07/16/19 11:00 07/17/19 09:58 Metoprolol Xl PO 50 mg QDAY [facility] Administration Ondansetron HCl 4 mg 07/16/19 01:38 Zofran IV Q8H PRN Nausea And Vomiting Oxycodone/Acetaminophen 1 tab 07/16/19 01:38 Percocet 5/325 PO Q6H PRN Pain, Moderate (4-6) Potassium Chloride 40 meq 07/17/19 10:30 K-Dur PO 07/17/19 13:00 ONCE [facility] Spironolactone 25 mg 07/17/19 10:00 07/17/19 09:59 Aldactone PO 25 mg QDAY [facility] Administration Nutrition/Malnutrition Assess - Dietary Evaluation Nutrition/Malnutrition Findings: Nutrition Notes Start: 07/17/19 11:02 Freq: Status: Active Protocol: Document 07/17/19 11:02 CC (Rec: 07/17/19 11:14 CC [id number]) Co-Sign 07/17/19 11:02 LP Nutrition Notes Need for Assessment generated from: MD Order,Education Initial or Follow up Assessment Current Diagnosis COPD,Diabetes,Hypertension, Heart Failure Other Pertinent Diagnosis Dementia, pneu, asthma Current Diet Const CHO Labs/Tests K 2.9 BUN 19 HbA1c 6.8 Pertinent Medications Lasix Height 5 ft 2 in Weight 29 kg Usual Body Weight 90 kg [place] Body Weight (kg) 50.00 BMI 11.7 Intake Prior to Admission Good Weight change and time frame 20%/ unknown time frame Weight Status Overweight Subjective/Other Information MD consult for HF diet reccomendations. 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 Pt reported she has not lost any wt unintentionally but pt reported her UBW to be about 90kg. Pt reported she lives with her brother at the moment so she does not do the cooking. Pt reported she has not had previous diet education besides some general infomation given at senior centers. Observed pt bfast tray >75% consumed. Burn Absent Trauma Absent GI Symptoms Nausea Food Allergy No Current % PO Good (75-100%) Minimum of two criteria No #1 Nutrition Diagnosis Food and nutrition-related knowledge deficit Etiology no previous diet education As Evidenced by Signs and Symptoms pt report of no diet education , A1c 6.8 Is patient on ventilator? No Is Patient Ambulatory and/or Out of Bed Yes REE-([facility]-ambulatory/OOB) [ 985.725 NUTR.[id number]] Calculation Used for Recommendations [facility] Additional Notes Protein: 72-86g/day (1.0-1.2g/ kg) Fluid: 1500ml restriction Nutrition Intervention Change Diet Order: Const CHO/Cardiac Teaching Recipient Patient Learning Readiness Good Teaching Methods Discussion,Handout Response to Teaching Verbalize understanding Education Handouts Provided Heart Failure Nutrition Therapy, Heart Healthy Const. CHO Barriers to Learning Cognitive/Verbal RD phone number provided Yes Patient aware of follow up options Yes Goal #1 Meet at least 80% of energy and protein needs Anticipated Discharge Needs: cariac/const CHO Follow-Up By: 07/20/19 Additional Comments F/U for PO intakes
--- NOTE | 2019-07-17 13:04 | Consultation ---
History of Present Illness - Reason for Consult Consult date: 07/17/19 Reason for consult: psychiatric assessment - Chief Complaint Chief complaint: Difficulty breathing - History of Present Psychiatric Illness Ms. Trevino is a 69-year-old -[place] female, the patient is sitting on the side of her bed, the patient is alert oriented x1, patient is dressed appropriately for the occasion, she is able to make her needs known, she maintains eye contact. When asked if she knew why she was here in the hospital patient stated, "because I am homeless, I do not take medication I have lost my car my house which left me unable to do a lot of things". The patient states, "when I found out I had cancer I was depressed, and was sent to see a therapist, I was given psychotherapy but was never placed on any medication, patient states, "I did very well with psychotherapy". The patient denies suicidal or homicidal ideation she reports that when her 20 years ago she did felt like she wanted to but that was 20 years ago, the patient contract for safety. She denies visual or auditory hallucination, but does report that she frequently has thoughts of all the people in her family that . Patient rep orts that she has not been sleeping well but her appetite is good. She reports her mood as uncertain. The patient stated, "my biggest problem now is Housing". The patient does report symptoms of depression stating, "I feel like I have no direction I feel like i am climbing a wall and never getting there". The patient does report that she is very private and that she never tells her kids her problem however she states that her kids does not mind her staying with them but she does not want to burden them. 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 PAST PSYCHIATRIC HISTORY: Diagnoses: depression Suicide attempts or Self-harm behavior: denies Prior psychiatric hospitalizations:denies Substance Abuse history:denies Previous psychiatric medications tried: none Outpatient treatment: denies PAST MEDICAL HISTORY: CHF, diabetes, asthma, COPD Family Psychiatric History None reported or documented SOCIAL HISTORY Marital Status: She is a Living Arrangements: Patient reports that she is homeless Employment Status: Retired Access to guns/weapons: Education: 12th grade History of Abuse: Denies Legal History: Denies ROS: Constitutional: Negative for weight loss ENT: Negative for stridor Respiratory: Negative for cough or hemoptysis All other systems reviewed and are negative MENTAL STATUS General Appearance and Behavior: age appropriate, good eye contact, cooperative with questioning and polite Cooperation: Cooperative Psychomotor Behavior: within normal limits Mood: "uncertain" Affect and affective range: Congruent with stated mood Thought Process: Fluent/Logical and Goal-directed Thought Content: Within reality Speech: Normal volume and Regular rate and rhythm Intellectual Functioning Average Suicidal Ideation: Denies SI Homicidal Ideation: Denies HI Impulse Control: intact Insight and Judgment: normal insight and judgment Memory: Normal Attention: Normal Orientation: alert and oriented RECOMMENDATIONS MEDICATIONS: start wellbutrin 150 mg daily Risks, benefits and alternatives of medications discussed with the patient, questions answered and consent obtained from patient. PSYCHOTHERAPY: Supportive psychotherapy provided MEDICAL: Per primary team. 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 request out-patient psychotherapy and a psychiatrist doctor to follow. will follow until d/c LEGAL STATUS: FOLLOW-UP: Will follow Medications and Allergies Allergies Allergy/AdvReac Type Severity Reaction Status Date / Time No Known Allergies Allergy Verified 06/12/19 17:57 Home Medications Medication Instructions Recorded Confirmed Last Taken Type Aspirin 325 mg PO QDAY 06/14/19 07/17/19 Unknown History Atorvastatin [Lipitor] 40 mg PO QHS 06/14/19 07/17/19 Unknown History Furosemide [Lasix TAB] 40 mg PO QDAY #30 tablet 06/14/19 07/17/19 Unknown Rx Metoprolol [Lopressor TAB] 25 mg PO BID #60 tablet 06/14/19 07/17/19 Unknown Rx Spironolactone [Aldactone] 50 mg PO DAILY 06/14/19 07/17/19 Unknown History lisinopriL [Zestril TAB] 10 mg PO QDAY #30 tablet 06/14/19 07/17/19 Unknown Rx Active Meds: Active Medications Acetaminophen (Tylenol) 650 mg PO Q4H PRN PRN Reason: Pain MILD(1-3)/Fever >100.5/PIERSON Albuterol (Proventil) 2.5 mg IH Q3HRT PRN PRN Reason: Shortness Of Breath Albuterol/Ipratropium (Duoneb *Not For Prn Use*) 1 ampul IH Q6HRT [facility] Last Admin: 07/17/19 07:45 Dose: 1 ampul Documented by: Dextrose (D50w (25gm) Syringe) 0 ml IV Q30MIN PRN; Protocol PRN Reason: Hypoglycemia Famotidine (Pepcid) 20 mg IV BID [facility] Last Admin: 07/17/19 09:59 Dose: 20 mg Documented by: Furosemide (Lasix) 40 mg PO 0600,1800 [facility] Insulin Human Lispro (Humalog) 0 unit SUB-Q ACHS [facility]; Protocol Last Admin: 07/17/19 12:36 Dose: Not Given Documented by: Losartan Potassium (Cozaar) 25 mg PO QDAY [facility] Last Admin: 07/17/19 09:59 Dose: 25 mg Documented by: Metoprolol Succinate (Metoprolol Xl) 50 mg PO QDAY [facility] Last Admin: 07/17/19 09:58 Dose: 50 mg Documented by: Ondansetron HCl (Zofran) 4 mg IV Q8H PRN PRN Reason: Nausea And Vomiting Oxycodone/Acetaminophen (Percocet 5/325) 1 tab PO Q6H PRN PRN Reason: Pain, Moderate (4-6) Spironolactone (Aldactone) 25 mg PO QDAY [facility] Last Admin: 07/17/19 09:59 Dose: 25 mg Documented by: Mental Status Exam - Vital signs Last Vital Signs Temp 98.4 F 07/17/19 11:56 Pulse 64 07/17/19 11:56 Resp 16 07/17/19 11:56 BP 123/74 07/17/19 11:56 Pulse Ox 95 07/17/19 11:56 Results Result Diagrams: 07/17/19 04:14 07/17/19 04:14 Abnormal lab results 07/16/19 07/16/19 07/17/19 Range/Units 16:10 20:14 04:14 MCH 27 L (28-32) pg RDW 17.9 H (13.2-15.2) % Miner % (Auto) 12.4 H (0.0-7.3) % Potassium (3.6-5.0) mmol/L BUN (7-17) mg/dL Glucose (65-100) mg/dL POC Glucose 204 H 142 H (70-105) Hemoglobin A1c (4-6) % 07/17/19 07/17/19 07/17/19 Range/Units 04:14 04:14 08:36 MCH (28-32) pg RDW (13.2-15.2) % Miner % (Auto) (0.0-7.3) % Potassium 2.9 L* D (3.6-5.0) mmol/L BUN 19 H (7-17) mg/dL Glucose 110 H (65-100) mg/dL POC Glucose 126 H (70-105) Hemoglobin A1c 6.8 H (4-6) % All other labs normal.
[2019-07-17] MEDS: FUROSEMIDE 40 MG TAB PO SCH (18:10)
[2019-07-18 05:27] LABS: BUN/Creatinine Ratio 22; Blood Urea Nitrogen 22 mg/dL (7-17); Hemolysis Index 9
[2019-07-18] MEDS: IPRATROPIUM/ALBUTEROL SULFATE 3 ML AMPUL.NEB IH SCH ×3 (07:41→21:20)
[2019-07-18] MEDS: INSULIN LISPRO 100 UNIT/ML SUB-Q SCH ×4 (07:48→21:53)
--- NOTE | 2019-07-18 09:14 | Progress Note ---
Assessment and Plan 69 y/o female with acute respiratory failure secondary to volume overload and CHF exacerbation. No new recs, please see below. 1. Not currently in COPD exacerbation, no indication for systemic steroids 2. Needs to follow up with outpatient pulmonary group ([facility] at [facility]) 3. Diruesis as per cards 4. Need to assess need for oxygen again prior to discharge. Subjective Date of service: 07/18/19 Principal diagnosis: HF Interval history: No acute events. Sitting up eating breakfast Objective Vital Signs - 12hr 07/17/19 07/17/19 07/17/19 21:26 21:27 22:40 Temperature 97.9 F Pulse Rate 55 L Pulse Rate [ 61 Bilateral Throughout] Respiratory 18 Rate Respiratory 20 Rate [Bilateral Throughout] Blood Pressure 115/70 O2 Sat by Pulse 99 99 Oximetry 07/18/19 07/18/19 07/18/19 02:00 03:29 07:41 Temperature 97.4 F L Pulse Rate 62 57 L Pulse Rate [ 64 Bilateral Throughout] Respiratory 16 Rate Respiratory 20 Rate [Bilateral Throughout] Blood Pressure 119/59 O2 Sat by Pulse 100 Oximetry 07/18/19 07/18/19 07:43 08:43 Temperature Pulse Rate 57 L Pulse Rate [ Bilateral Throughout] Respiratory Rate Respiratory Rate [Bilateral Throughout] Blood Pressure O2 Sat by Pulse 98 Oximetry Constitutional: no acute distress, alert Eyes: non-icteric ENT: oropharynx moist Neck: supple Effort: normal Ascultation: Bilateral: rales (bases) Percussion: Bilateral: not dull Tactile fremitus: Bilateral: normal Cardiovascular: regular rate and rhythm Gastrointestinal: normoactive bowel sounds CBC and BMP: 07/17/19 04:14 07/18/19 04:00 Abnormal lab findings: Abnormal Labs 07/15/19 07/15/19 07/16/19 23:41 23:41 07:46 MCH 26 L RDW 18.0 H Lymph % (Auto) 38.2 H [place] % (Auto) 11.7 H Potassium BUN Glucose 177 H POC Glucose 256 H Hemoglobin A1c NT-Pro-B Natriuret Pep 88204 H 07/16/19 07/16/19 07/16/19 11:28 16:10 20:14 MCH RDW Lymph % (Auto) [place] % (Auto) Potassium BUN Glucose POC Glucose 300 H 204 H 142 H Hemoglobin A1c NT-Pro-B Natriuret Pep 07/17/19 07/17/19 07/17/19 04:14 04:14 04:14 MCH 27 L RDW 17.9 H Lymph % (Auto) [place] % (Auto) 12.4 H Potassium 2.9 L* D BUN 19 H Glucose 110 H POC Glucose Hemoglobin A1c 6.8 H NT-Pro-B Natriuret Pep 07/17/19 07/17/19 07/17/19 08:36 12:06 17:20 MCH RDW Lymph % (Auto) [place] % (Auto) Potassium BUN Glucose POC Glucose 126 H 134 H 146 H Hemoglobin A1c NT-Pro-B Natriuret Pep 07/17/19 07/18/19 07/18/19 20:57 04:00 08:17 MCH RDW Lymph % (Auto) [place] % (Auto) Potassium 3.2 L BUN 22 H Glucose 117 H POC Glucose 181 H 113 H Hemoglobin A1c NT-Pro-B Natriuret Pep
[2019-07-18] MEDS ORDERED: POTASSIUM CHLORIDE ER 20 MEQ TAB PO NR (09:30)
--- NOTE | 2019-07-18 09:37 | Progress Note ---
Assessment and Plan Cont Toprol, losartan, aldactone, PO lasix. Replete K+. At discharge, recommend PO potassium 10mEq daily. Plan to evaluate for AICD candidacy as OP. Follow up in our [place] office with Dr. James on 07/23/2019 @ 10:15AM. The patient has been seen in conjunction with Dr. James who agrees with the assessment and plan of care. - Patient Problems (1) Acute HFrEF (heart failure with reduced ejection fraction) Current Visit: Yes Status: Acute (2) Nonischemic cardiomyopathy Current Visit: Yes Status: Chronic (3) LBBB (left bundle branch block) Current Visit: Yes Status: Chronic (4) Acute respiratory failure Current Visit: Yes Status: Acute (5) Uncontrolled hypertension Current Visit: Yes Status: Chronic (6) History of asthma Current Visit: Yes Status: Chronic (7) Hyperlipidemia Current Visit: Yes Status: Chronic (8) Medically noncompliant Current Visit: Yes Status: Chronic (9) Hypokalemia Current Visit: Yes Status: Acute Subjective Date of service: 07/18/19 Principal diagnosis: HF Interval history: pt ambulating around room without difficulty, no current complaints. in SR on tele HR 56 with SB HR low 45 noted overnight. no family at bedside. Objective Last Vital Signs Temp 97.9 F 07/18/19 08:03 Pulse 57 L 07/18/19 08:43 Resp 18 07/18/19 08:03 BP 123/56 07/18/19 08:03 Pulse Ox 95 07/18/19 08:03 - Physical Examination General: No Apparent Distress HEENT: Positive: PERRL, Normocephaly, Mucus Membranes Moist Neck: Positive: neck supple, trachea midline Cardiac: Positive: Reg Rate and Rhythm, S1/S2 Lungs: Positive: Decreased Breath Sounds Neuro: Positive: Grossly Intact Abdomen: Negative: Tender Skin: Negative: Rash Musculoskeletal: No Pain Extremities: Absent: edema - Labs and Meds Comprehensive Metabolic Panel 07/18/19 Range/Units 04:00 Sodium 145 (137-145) mmol/L Potassium 3.2 L (3.6-5.0) mmol/L Chloride 103.2 (98-107) mmol/L Carbon Dioxide 27 (22-30) mmol/L BUN 22 H (7-17) mg/dL Creatinine 1.0 (0.7-1.2) mg/dL Glucose 117 H (65-100) mg/dL Calcium 9.0 (8.4-10.2) mg/dL - Imaging and Cardiology EKG: report reviewed, image reviewed Echo: report reviewed (06/2019 showed EF 25-30%, grade 2 diastolic dysfunction, no significant valvular abnormalities. ) Cardiac cath: report reviewed (done at [facility] on 05/2019 showed mod single vessel CAD involving prox LAD with negative IFR, EF 15-20%. ) - Telemetry EKG Rhythm: Sinus Rhythm - EKG Sinus rhythms and dysrhythmias: sinus rhythm AV and intraventricular conduction: left bundle branch block
[2019-07-18] MEDS: METOPROLOL SUCCINATE XL 50 MG TAB PO SCH (09:40)
[2019-07-18] MEDS: FAMOTIDINE 20 MG TAB PO SCH ×2 (09:47→21:52)
[2019-07-18] MEDS: LOSARTAN 25 MG TAB PO SCH (09:47)
[2019-07-18] MEDS: SPIRONOLACTONE 25 MG TAB PO SCH (09:47)
[2019-07-18] MEDS: buPROPion SR 150 MG TAB PO SCH (09:48)
[2019-07-18] MEDS: FUROSEMIDE 40 MG TAB PO SCH ×2 (10:39→17:42)
--- NOTE | 2019-07-18 11:23 | Progress Note ---
Subjective - Reason for Consult Consult date: 07/18/19 Reason for consult: psychiatric assessment - Chief Complaint Chief complaint: During my interview with the patient this morning, the patient was ambulating in the hallway with physical therapy, the patient is alert oriented x3, able to make needs known, dressed appropriately for the occasion. The patient reports that she is doing very well she is eating and sleeping well. The patient denies suicidal or homicidal ideations and contracts for safety. she denies visual or auditory hallucinations. The patient reports that she still has some depression going on because of her condition, she states, "anyone in my condition would be depressed not in a way to hurt myself but, just thinking where i go from here, I have my yarsanism family and my kids so I should be fine. REVIEW OF SYSTEMS Constitutional: Negative for weight loss ENT: Negative for stridor Respiratory: Negative for cough or hemoptysis All other systems reviewed and are negative MSE Appearance: Awake. Dressed appropriately Behavior: calm ,cooperative Mood: good Affect: eurhythmic Thought Process: goal directed Speech:normal Thought Content Suicidal: Denies Homicidal: Denies Delusions: denies Consciousness: Alert Cognition/Memory: intact Insight/Judgment: intact RECOMMENDATIONS MEDICATIONS: continue wellbutrin 150mg daily Risks, benefits and alternatives of medications discussed with the patient, q uestions answered and consent obtained from patient. PSYCHOTHERAPY: Supportive psychotherapy provided MEDICAL: Per primary team. 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 request out-patient psychotherapy and a psychiatrist doctor to follow. will follow until d/c LEGAL STATUS: FOLLOW-UP: Will follow Mental Status Exam - Vital signs Last Vital Signs Temp 97.9 F 07/18/19 08:03 Pulse 57 L 07/18/19 08:43 Resp 18 07/18/19 08:03 BP 123/56 07/18/19 08:03 Pulse Ox 95 07/18/19 08:03
--- NOTE | 2019-07-18 14:17 | Discharge Summary ---
Providers - Providers Date of Admission: 07/16/19 00:58 Date of discharge: 07/19/19 Attending physician: CANDACE BETANCOURT 07/16/19 03:18 Consult to Physician [CONS] Routine Comment: Consulting Provider: GE LIVE Physician Instructions: Reason For Exam: chf exacerbation 07/16/19 10:49 Consult to Dietitian/Nutrition [CONS] Routine Physician Instructions: HF diet, 1500mL fluid restriction Reason For Exam: Reason for Consult: Diet education 07/16/19 11:29 Consult to Physician [CONS] Routine Comment: Consulting Provider: TRACIE FLORIAN Physician Instructions: Reason For Exam: copd 07/16/19 14:53 Consult to Mental Health [CONS] Routine Reason For Exam: behavioral disturbance 07/16/19 14:56 Physical Therapy Evaluation and Treat [CONS] Routine Comment: Reason For Exam: ataxia Primary care physician: BUSINESS DEVELOPMENT AGENT Hospitalization Condition: Fair Hospital course: Discharge diagnosis; --Acute on chronic systolic CHF : EF 20 to 25% IV diuretics, beta-blockers, ANYA inhibitors, input output monitoring Low-sodium diet, fluid restriction,Cardiology evaluation --Acute on chronic resp failure ; patient claims she has home oxygen Patient required BiPAP at the time of admission Pulmonary following. Continue current management Evaluation for home oxygen at discharge -- COPD ; compensated Scheduled nebs, breathing treatment and as needed, empiric steroid Supplemental oxygen to keep oxygen saturation above 92% Consider to consult pulmonary if no improvement in next 24 hours --SIRS CXR; Bilateral pulmonary opacities may represent atelectasis/edema Tachycardic with heart rate 113 bpm, Respiratory rate 34 Continue supportive care --DM: Accu-Chek sliding scale coverage ADA diet and insulin as needed --Hypertensive urgency ; present on admission, improved -BP on admission 168/106 Continue antihypertensives and PRN medications --Medical noncompliance; Strongly advised to comply with medications diet follow-up visits Verbalized understanding --DVT prophylaxis: Lovenox SCDs Advance Directives: No VTE prophylaxis?: Chemical Plan of care discussed with patient/family: Yes Disposition: [id number] HOME UNDER HOME HLTH Time spent for discharge: 32min Core Measure Documentation - Palliative Care Palliative Care/ Comfort Measures: Not Applicable - Core Measures Any of the following diagnoses?: heart failure, none - Heart Failure Discharge Requirements ANYA/ARB for LVSD if EF <40%: Yes Beta vladimir at discharge: Yes Exam - Constitutional Vitals: Temp Pulse Resp BP Pulse Ox 97.8 F 52 L 18 108/54 100 07/18/19 11:51 07/18/19 11:51 07/18/19 11:51 07/18/19 11:51 07/18/19 11:51 General appearance: Present: no acute distress, well-nourished - EENT Eyes: Present: PERRL, EOM intact - Neck Neck: Present: supple, normal ROM - Respiratory Respiratory effort: normal Respiratory: bilateral: diminished, negative: rales, rhonchi, wheezing - Cardiovascular Rhythm: regular Heart Sounds: Present: S1 & S2 - Extremities Extremities: no ischemia, No edema - Abdominal General gastrointestinal: Present: soft, non-tender, non-distended, normal bowel sounds - Integumentary Integumentary: Present: clear, warm - Musculoskeletal Musculoskeletal: strength equal bilaterally - Psychiatric Psychiatric: appropriate mood/affect, cooperative - Neurologic Neurologic: moves all extremities Plan Activity: advance as tolerated Diet: low salt, other (cardiac diet) Special Instructions: restrict fluid intake to (12-1300 ml /24hrs) Additional Instructions: strongly advised to comply with medications, diet. And follow-up visits. Cardiology follow-up for outpatient evaluation for AICD. No indication for home oxygen. Resting room air 02 sat 100%. Ambulating room air 92%. After ambulating resting 97% RA Follow up with: PRIMARY CAREMD [Primary Care Provider] - 3-5 Days TRACIE FLORIAN MD [Staff Physician] - 7 Days CARMEN JAMES MD [Staff Physician] - 07/23/19 10:15 am (Follow up in our [facility] office with Dr. James on 07/23/2019 @ 10:15AM. ) Prescriptions: Losartan [Cozaar] 25 mg PO QDAY #30 tablet Potassium Chloride [K-Dur] 10 meq PO QDAY #14 tablet
--- NOTE | 2019-07-18 18:13 | Progress Note ---
Assessment and Plan Assessment and plan: --Acute on chronic systolic CHF : EF 20 to 25% Symptoms significantly improved on current regimen IV diuretics, beta-blockers, ANYA inhibitors, input output monitoring Low-sodium diet, fluid restriction, Cardio planning outpatient evaluation for ICD placement upon discharge --Acute on chronic resp failure ; patient claims she has home oxygen Patient required BiPAP at the time of admission Pulmonary following. Continue current management Evaluation for home oxygen at discharge -- COPD ; compensated Scheduled nebs, breathing treatment and as needed, empiric steroid Supplemental oxygen to keep oxygen saturation above 92% Consider to consult pulmonary if no improvement in next 24 hours --SIRS CXR; Bilateral pulmonary opacities may represent atelectasis/edema Tachycardic with heart rate 113 bpm, Respiratory rate 34 Continue supportive care --DM: Accu-Chek sliding scale coverage ADA diet and insulin as needed --Hypertensive urgency ; present on admission, improved -BP on admission 168/106 Continue antihypertensives and PRN medications --Medical noncompliance; Strongly advised to comply with medications diet follow-up visits Verbalized understanding --DVT prophylaxis: Lovenox SCDs Advance Directives: No VTE prophylaxis?: Chemical Plan of care discussed with patient/family: Yes Hold discharge tonight, DC planning per case management Possible discharge home tomorrow History Interval history: Patient was initially cleared by all the consultants for discharge Discharge orders given, however patient has no place to go Case management try to reach the daughter, could not contact Awaiting safe DC planning per case management. Hold discharge Patient seen and examined at bedside this morning Medical records reviewed Patient feels better, denies shortness of breath or chest pain Alert awake oriented Ambulatory, O2 sats more than 95% room air Hospitalist Physical - Constitutional Vitals: Temp Pulse Resp BP Pulse Ox 98.6 F 71 18 125/59 98 07/18/19 16:18 07/18/19 16:18 07/18/19 16:18 07/18/19 16:18 07/18/19 16:18 General appearance: Present: no acute distress, well-nourished - EENT Eyes: Present: PERRL, EOM intact - Neck Neck: Present: supple, normal ROM - Respiratory Respiratory effort: normal Respiratory: bilateral: diminished, rales, negative: rhonchi, wheezing - Cardiovascular Rhythm: regular Heart Sounds: Present: S1 & S2 - Extremities Extremities: no ischemia, No edema - Abdominal General gastrointestinal: soft, non-tender, non-distended, normal bowel sounds - Integumentary Integumentary: Present: clear, warm - Psychiatric Psychiatric: appropriate mood/affect, cooperative - Neurologic Neurologic: moves all extremities Results - Labs CBC & Chem 7: 07/17/19 04:14 07/18/19 04:00 Labs: Laboratory Last Values WBC 6.0 K/mm3 (4.5-11.0) 07/17/19 04:14 RBC 4.20 M/mm3 (3.65-5.03) 07/17/19 04:14 Hgb 11.2 gm/dl (10.1-14.3) 07/17/19 04:14 Hct 34.4 % (30.3-42.9) 07/17/19 04:14 MCV 82 fl (79-97) 07/17/19 04:14 MCH 27 pg (28-32) L 07/17/19 04:14 MCHC 32 % (30-34) 07/17/19 04:14 RDW 17.9 % (13.2-15.2) H 07/17/19 04:14 Plt Count 187 K/mm3 (140-440) 07/17/19 04:14 Lymph % (Auto) 32.8 % (13.4-35.0) 07/17/19 04:14 [place] % (Auto) 12.4 % (0.0-7.3) H 07/17/19 04:14 Eos % (Auto) 1.1 % (0.0-4.3) 07/17/19 04:14 Baso % (Auto) 0.8 % (0.0-1.8) 07/17/19 04:14 Lymph # 2.0 K/mm3 (1.2-5.4) 07/17/19 04:14 [place] # 0.7 K/mm3 (0.0-0.8) 07/17/19 04:14 Eos # 0.1 K/mm3 (0.0-0.4) 07/17/19 04:14 Baso # 0.1 K/mm3 (0.0-0.1) 07/17/19 04:14 Seg Neutrophils % 52.9 % (40.0-70.0) 07/17/19 04:14 Seg Neutrophils # 3.2 K/mm3 (1.8-7.7) 07/17/19 04:14 Sodium 145 mmol/L (137-145) 07/18/19 04:00 Potassium 3.2 mmol/L (3.6-5.0) L 07/18/19 04:00 Chloride 103.2 mmol/L (98-107) 07/18/19 04:00 Carbon Dioxide 27 mmol/L (22-30) 07/18/19 04:00 Anion Gap 18 mmol/L 07/18/19 04:00 BUN 22 mg/dL (7-17) H 07/18/19 04:00 Creatinine 1.0 mg/dL (0.7-1.2) 07/18/19 04:00 Estimated GFR > 60 ml/min 07/18/19 04:00 BUN/Creatinine Ratio 22 % 07/18/19 04:00 Glucose 117 mg/dL (65-100) H 07/18/19 04:00 POC Glucose 137 (70-105) H 07/18/19 16:27 Hemoglobin A1c 6.8 % (4-6) H 07/17/19 04:14 Calcium 9.0 mg/dL (8.4-10.2) 07/18/19 04:00 Magnesium 2.00 mg/dL (1.7-2.3) 07/18/19 04:00 Total Creatine Kinase 65 units/L (30-135) 07/15/19 23:41 CK-MB (CK-2) 1.9 ng/mL (0.0-4.0) 07/15/19 23: CK-MB (CK-2) Rel Index 2.9 (0-4) 07/15/19 23:41 Troponin T < 0.010 ng/mL (0.00-0.029) 07/15/19 23:41 NT-Pro-B Natriuret Pep 29701 pg/mL (0-900) H 07/15/19 23:41 Syphilis IgG Antibody Non-reactive (NonReactive) 07/16/19 15:25 Hepatitis A IgM Ab Non-reactive (NonReactive) 07/16/19 15: Hep Bs Antigen Non-reactive (Negative) 07/16/19 Hep B Core IgM Ab Non-reactive (NonReactive) 02/10/20 15:25 Hepatitis C Antibody Non-reactive (NonReactive) 07/16/19 15:25 Active Medications - Current Medications Current Medications: Generic Name Dose Route Start Last Admin Trade Name Freq PRN Reason Stop Dose Admin Acetaminophen 650 mg 07/16/19 01:38 Tylenol PO Q4H PRN Pain MILD(1-3)/Fever >100.5/PIERSON Albuterol 2.5 mg 07/16/19 01:38 Proventil IH Q3HRT PRN Shortness Of Breath Albuterol/Ipratropium 1 ampul 07/18/19 08:00 07/18/19 14:28 Duoneb *Not For Prn Use* IH Not Given TIDRT MEGA Bupropion HCl 150 mg 07/18/19 10:00 07/18/19 09:48 Wellbutrin Sr PO 150 mg QDAY MEGA Administration Dextrose 0 ml 07/16/19 01:38 D50w (25gm) Syringe IV Q30MIN PRN Hypoglycemia Protocol Famotidine 20 mg 07/18/19 10:00 07/18/19 09:47 Pepcid PO 20 mg BID MEGA Administration Furosemide 40 mg 07/17/19 18:00 07/18/19 17:42 Lasix PO 40 mg 0600,1800 MEGA Administration Insulin Human Lispro 0 unit 07/16/19 07:30 07/18/19 17:00 Humalog SUB-Q Not Given ACHS MEGA Protocol Losartan Potassium 25 mg 07/17/19 10:00 07/18/19 09:47 Cozaar PO 25 mg QDAY MEGA Administration Metoprolol Succinate 25 mg 07/18/19 10:30 07/18/19 09:40 Metoprolol Xl PO 25 mg QDAY MEGA Administration Ondansetron HCl 4 mg 07/16/19 01:38 Zofran IV Q8H PRN Nausea And Vomiting Oxycodone/Acetaminophen 1 tab 07/16/19 01:38 07/18/19 09:47 Percocet 5/325 PO 1 tab Q6H PRN Administration Pain, Moderate (4-6) Spironolactone 25 mg 07/17/19 10:00 07/18/19 09:47 Aldactone PO 25 mg QDAY MEGA Administration Nutrition/Malnutrition Assess - Dietary Evaluation Nutrition/Malnutrition Findings: Nutrition Notes Start: 07/17/19 11:02 Freq: Status: Active Protocol: Document 07/17/19 11:02 CC (Rec: 07/17/19 11:14 CC [id number]) Co-Sign 07/17/19 11:02 LP Nutrition Notes Need for Assessment generated from: MD Order,Education Initial or Follow up Assessment Current Diagnosis COPD,Diabetes,Hypertension, Heart Failure Other Pertinent Diagnosis Dementia, pneu, asthma Current Diet Const CHO Labs/Tests K 2.9 BUN 19 HbA1c 6.8 Pertinent Medications Lasix Height 5 ft 2 in Weight 72 kg Usual Body Weight 90 kg [place] Body Weight (kg) 50.00 BMI 29.0 Intake Prior to Admission Good Weight change and time frame 20%/ unknown time frame Weight Status Overweight Subjective/Other Information MD consult for HF diet recommendations. Pt reported her appetite was good [employer]. Pt reported she has not lost any wt unintentionally but pt reported her UBW to be about 90kg. Pt reported she lives with her brother at the moment so she does not do the cooking. Pt reported she has not had previous diet education besides some general infomation given at senior centers. Observed pt bfast tray >75% consumed. Burn Absent Trauma Absent GI Symptoms Nausea Food Allergy No Current % PO Good (75-100%) Minimum of two criteria No #1 Nutrition Diagnosis Food and nutrition-related knowledge deficit Etiology limited previous diet education As Evidenced by Signs and Symptoms pt report, A1c 6.8 Is patient on ventilator? No Is Patient Ambulatory and/or Out of Bed Yes REE-([facility]-ambulatory/OOB) [ 1544.725 [id number]] Calculation Used for Recommendations [facility] Additional Notes Protein: 72-86g/day (1.0-1.2g/ kg) Fluid: 1500ml restriction Nutrition Intervention Change Diet Order: Consistent CHO/Cardiac Teaching Recipient Patient Learning Readiness Good Teaching Methods Discussion,Handout Response to Teaching Verbalize understanding Education Handouts Provided Heart Failure Nutrition Therapy, Heart Healthy Consistent CHO Barriers to Learning Cognitive/Verbal RD phone number provided Yes Patient aware of follow up options Yes Actions To Overcome Barriers Other Goal #1 Meet at least 80% of energy and protein needs Anticipated Discharge Needs: cardiac/consistent CHO Follow-Up By: 07/24/19 Additional Comments F/U for PO intakes
[2019-07-19] MEDS: FUROSEMIDE 40 MG TAB PO SCH ×2 (07:48→17:33)
[2019-07-19] MEDS: INSULIN LISPRO 100 UNIT/ML SUB-Q SCH ×3 (08:38→17:41)
[2019-07-19] MEDS: IPRATROPIUM/ALBUTEROL SULFATE 3 ML AMPUL.NEB IH SCH ×2 (08:40→13:54)
[2019-07-19] MEDS ORDERED: POTASSIUM CHLORIDE ER 20 MEQ TAB PO SCH ×2 (09:00→12:00)
[2019-07-19] MEDS: METOPROLOL SUCCINATE XL 50 MG TAB PO SCH (09:40)
[2019-07-19] MEDS: LOSARTAN 25 MG TAB PO SCH (09:41)
[2019-07-19] MEDS: buPROPion SR 150 MG TAB PO SCH (09:41)
[2019-07-19] MEDS: FAMOTIDINE 20 MG TAB PO SCH (09:41)
[2019-07-19] MEDS: SPIRONOLACTONE 25 MG TAB PO SCH (09:41)
[2019-07-19 09:42] VITALS: BP 134/79
--- NOTE | 2019-07-19 10:05 | Progress Note ---
Assessment and Plan Currently stable cardiac status. Cont Toprol, losartan, aldactone, PO lasix. Replete K+. Pt may discharge home from cardiology standpoint. At discharge, recommend PO potassium 10mEq daily. Plan to evaluate for AICD candidacy as OP. Follow up in our [place] office with Dr. James on 07/23/2019 @ 10:15AM. The patient has been seen in conjunction with Dr. James who agrees with the assessment and plan of care. - Patient Problems (1) Acute HFrEF (heart failure with reduced ejection fraction) Current Visit: Yes Status: Acute (2) Nonischemic cardiomyopathy Current Visit: Yes Status: Chronic (3) LBBB (left bundle branch block) Current Visit: Yes Status: Chronic (4) Acute respiratory failure Current Visit: Yes Status: Acute (5) Uncontrolled hypertension Current Visit: Yes Status: Chronic (6) History of asthma Current Visit: Yes Status: Chronic (7) Hyperlipidemia Current Visit: Yes Status: Chronic (8) Medically noncompliant Current Visit: Yes Status: Chronic (9) Hypokalemia Current Visit: Yes Status: Acute Subjective Date of service: 07/19/19 Principal diagnosis: HF Interval history: pt resting comfortably in bed, no current complaints. in SR on tele HR 56, 12 beat run NSVT noted overnight, pt asymptomatic. no family at bedside. Objective Last Vital Signs Temp 97.3 F L 07/19/19 07:43 Pulse 84 07/19/19 09:41 Resp 19 07/19/19 08:00 BP 134/79 07/19/19 09:41 Pulse Ox 100 07/19/19 08:41 - Physical Examination General: No Apparent Distress HEENT: Positive: PERRL, Normocephaly, Mucus Membranes Moist Neck: Positive: neck supple, trachea midline Cardiac: Positive: Regular Rhythm, S1/S2 Lungs: Positive: Decreased Breath Sounds Neuro: Positive: Grossly Intact Abdomen: Negative: Tender Skin: Negative: Rash Musculoskeletal: No Pain Extremities: Absent: edema - Labs and Meds Comprehensive Metabolic Panel 07/19/19 Range/Units 06:01 Potassium 3.1 L (3.6-5.0) mmol/L - Imaging and Cardiology EKG: report reviewed, image reviewed Echo: report reviewed (06/2019 showed EF 25-30%, grade 2 diastolic dysfunction, no significant valvular abnormalities. ) Cardiac cath: report reviewed (done at [facility] on 05/2019 showed mod single vessel CAD involving prox LAD with negative IFR, EF 15-20%. ) - EKG Sinus rhythms and dysrhythmias: sinus rhythm AV and intraventricular conduction: left bundle branch block
--- NOTE | 2019-07-19 11:47 | Progress Note ---
Assessment and Plan 69 y/o female with acute respiratory failure secondary to volume overload and CHF exacerbation. Still would walk patient prior to discharge. No objection pulm etienne for discharge. Needs to follow up in our office for full PFT and assessment of COPD if this is truly present 1. Not currently in COPD exacerbation, no indication for systemic steroids 2. Needs to follow up with outpatient pulmonary group ([facility] at [facility]) 3. [place] as per cards 4. Need to assess need for oxygen again prior to discharge. Subjective Date of service: 07/19/19 Principal diagnosis: HF Interval history: Documented sat on 1 liter was 100%. No pulmonary complaints. Objective Vital Signs - 12hr 07/18/19 07/19/19 07/19/19 23:54 00:00 00:25 Temperature 98.0 F Pulse Rate 67 61 70 Pulse Rate [ Bilateral Throughout] Respiratory 18 25 H Rate Respiratory Rate [Bilateral Throughout] Blood Pressure 109/62 O2 Sat by Pulse 100 100 Oximetry 07/19/19 07/19/19 07/19/19 03:34 07:43 07:45 Temperature 98.0 F 97.3 F L Pulse Rate 68 45 L 56 L Pulse Rate [ Bilateral Throughout] Respiratory 18 20 Rate Respiratory Rate [Bilateral Throughout] Blood Pressure 124/69 125/69 O2 Sat by Pulse 99 100 Oximetry 07/19/19 07/19/19 07/19/19 08:00 08:41 09:40 Temperature Pulse Rate 84 Pulse Rate [ 57 L Bilateral Throughout] Respiratory 18 Rate Respiratory 19 Rate [Bilateral Throughout] Blood Pressure 134/79 O2 Sat by Pulse 100 Oximetry 07/19/19 09:41 Temperature Pulse Rate 84 Pulse Rate [ Bilateral Throughout] Respiratory Rate Respiratory Rate [Bilateral Throughout] Blood Pressure 134/79 O2 Sat by Pulse Oximetry Constitutional: no acute distress, alert Eyes: non-icteric ENT: oropharynx moist Neck: supple Effort: normal Ascultation: Bilateral: rales (bases) Percussion: Bilateral: not dull Tactile fremitus: Bilateral: normal Cardiovascular: regular rate and rhythm Gastrointestinal: normoactive bowel sounds CBC and BMP: 07/17/19 04:14 07/19/19 06:01 Abnormal lab findings: Abnormal Labs 07/15/19 07/15/19 07/16/19 23:41 23:41 07:46 MCH 26 L RDW 18.0 H Lymph % (Auto) 38.2 H [place] % (Auto) 11.7 H Potassium BUN Glucose 177 H POC Glucose 256 H Hemoglobin A1c NT-Pro-B Natriuret Pep 81027 H 07/16/19 07/16/19 07/16/19 11:28 16:10 20:14 MCH RDW Lymph % (Auto) [place] % (Auto) Potassium BUN Glucose POC Glucose 300 H 204 H 142 H Hemoglobin A1c NT-Pro-B Natriuret Pep 07/17/19 07/17/19 07/17/19 04:14 04:14 04:14 MCH 27 L RDW 17.9 H Lymph % (Auto) [place] % (Auto) 12.4 H Potassium 2.9 L* D BUN 19 H Glucose 110 H POC Glucose Hemoglobin A1c 6.8 H NT-Pro-B Natriuret Pep 07/17/19 07/17/19 07/17/19 08:36 12:06 17:20 MCH RDW Lymph % (Auto) [place] % (Auto) Potassium BUN Glucose POC Glucose 126 H 134 H 146 H Hemoglobin A1c NT-Pro-B Natriuret Pep 07/17/19 07/18/19 07/18/19 20:57 04:00 08:17 MCH RDW Lymph % (Auto) [place] % (Auto) Potassium 3.2 L BUN 22 H Glucose 117 H POC Glucose 181 H 113 H Hemoglobin A1c NT-Pro-B Natriuret Pep 07/18/19 07/18/19 07/18/19 11:58 16:27 21:27 MCH RDW Lymph % (Auto) [place] % (Auto) Potassium BUN Glucose POC Glucose 149 H 137 H 176 H Hemoglobin A1c NT-Pro-B Natriuret Pep 07/19/19 06:01 MCH RDW Lymph % (Auto) [place] % (Auto) Potassium 3.1 L BUN Glucose POC Glucose Hemoglobin A1c NT-Pro-B Natriuret Pep
--- NOTE | 2019-07-19 12:13 | Progress Note ---
Subjective - Reason for Consult Consult date: 07/19/19 Reason for consult: psychiatric assessment - Chief Complaint Chief complaint: During my interview with the patient this morning, the patient was seated in bed with daughter at bedside, the patient is alert oriented x3, able to make needs known, dressed appropriately for the occasion. The patient reports that she is doing very well she is eating and sleeping well. The patient denies suicidal or homicidal ideations and contracts for safety. she denies visual or auditory hallucinations. The patient reports that her depression is much better today. REVIEW OF SYSTEMS Constitutional: Negative for weight loss ENT: Negative for stridor Respiratory: Negative for cough or hemoptysis All other systems reviewed and are negative MSE Appearance: Awake. Dressed appropriately Behavior: calm ,cooperative Mood: good Affect: euthymic Thought Process: goal directed Speech:normal Thought Content Suicidal: Denies Homicidal: Denies Delusions: denies Consciousness: Alert Cognition/Memory: forgetful Insight/Judgment: intact RECOMMENDATIONS MEDICATIONS: continue wellbutrin 150mg daily Risks, benefits and alternatives of medications discussed with the patient, questions answered and consent obtained from patient. PSYCHOTHERAPY: Supportive psychotherapy provided MEDICAL: Per primary team. CRITICAL CARE PHYSICIAN ASSISTANT: DISPOSITION: Per primary team; no indication for acute inpatient psychiatric hospitalization at this time, pt. request out-patient psychotherapy and a psychiatrist doctor to follow. will follow until d/c LEGAL STATUS: FOLLOW-UP: Will follow Mental Status Exam - Vital signs Last Vital Signs Temp 97.3 F L 07/19/19 07:43 Pulse 84 07/19/19 09:41 Resp 19 07/19/19 08:00 BP 134/79 07/19/19 09:41 Pulse Ox 100 07/19/19 08:41
== END 2019-07-19 18:00 | disposition home health service (06) | DRG 291 ==
LOC: ED 23:21 → 4A 07-16 00:58
PROVIDERS: ADMIT Internal Medicine Geriatric Medicine; ATTEND Internal Medicine
PROC: 5A09357 Assistance with Respiratory Ventilation, Less than 24 Consecutive Hours, Continuous Positive Airway Pressure (ICD-10-PCS; principal; 2019-07-15)
PROC: 5A09357 Assistance with Respiratory Ventilation, Less than 24 Consecutive Hours, Continuous Positive Airway Pressure (ICD-10-PCS; 2019-07-16)
PROC: 5A09357 Assistance with Respiratory Ventilation, Less than 24 Consecutive Hours, Continuous Positive Airway Pressure (ICD-10-PCS; 2019-07-17)
PROC: 5A09357 Assistance with Respiratory Ventilation, Less than 24 Consecutive Hours, Continuous Positive Airway Pressure (ICD-10-PCS; 2019-07-19)
DX: I11.0 Hypertensive heart disease with heart failure (principal); J96.21 Acute and chronic respiratory failure with hypoxia; R65.10 Systemic inflammatory response syndrome (SIRS) of non-infectious origin without acute organ dysfunction; J81.1 Chronic pulmonary edema; I50.23 Acute on chronic systolic (congestive) heart failure; I42.8 Other cardiomyopathies; J45.909 Unspecified asthma, uncomplicated; J44.9 Chronic obstructive pulmonary disease, unspecified; F03.90 Unspecified dementia, unspecified severity, without behavioral disturbance, psychotic disturbance, mood disturbance, and anxiety; I25.10 Atherosclerotic heart disease of native coronary artery without angina pectoris; I16.0 Hypertensive urgency; I44.7 Left bundle-branch block, unspecified; E78.5 Hyperlipidemia, unspecified; G47.33 Obstructive sleep apnea (adult) (pediatric); E11.65 Type 2 diabetes mellitus with hyperglycemia; E87.6 Hypokalemia; E87.70 Fluid overload, unspecified; F32.9 Major depressive disorder, single episode, unspecified; Z85.3 Personal history of malignant neoplasm of breast; Z90.10 Acquired absence of unspecified breast and nipple; Z99.81 Dependence on supplemental oxygen; Z91.14 Patient's other noncompliance with medication regimen; Z82.49 Family history of ischemic heart disease and other diseases of the circulatory system; Z79.4 Long term (current) use of insulin
CPT/HCPCS: 36415; 71045; 80048; 80074; 82550; 82553; 82962; 83036; 83735; 83880; 84132; 84484; 85025; 86592; 93005; 93010; 94640; 94644; 94660; 94760; 96365; 96375; G0378; J1815; J1940; J2930; J3475

== ENCOUNTER 2019-08-19 16:05 | Emergency (ER) | payer MEDICARE ==
[2019-08-19 18:32] VITALS: BP 146/74
--- NOTE | 2019-08-19 18:39 | Emergency Department Report ---
Chief Complaint: High BP Stated Complaint: DEMENTIA Time Seen by Provider: 08/19/19 18:29 - HPI History of Present Illness: 69 y/o female comes in for lower leg swelling that is intermittent. No SOB no chest pain. Was recently here 08/06/19. - Exam Vital Signs: Vital Signs 08/19/19 08/19/19 16:10 18:31 Temperature 98.5 F Pulse Rate 98 H Respiratory 20 Rate Blood Pressure 159/100 Blood Pressure 146/74 [Left] O2 Sat by Pulse 98 Oximetry Physical Exam: AxO times 3 NAD Chest CTAB cardiac RRR Lower extremities No swelling noted MSE screening note: Focused history and physical exam performed. Due to findings the following was ordered: 69 y/o female comes in for lower leg swelling that is intermittent. No SOB no chest pain. Was recently here 08/06/19. BP was 146/74 Recommend to follow up with her PCP. ED Disposition for MSE Disposition: Z-07 MED SCREENING EXAM-LEFT Is pt being admited?: No Does the pt Need Aspirin: No Condition: Stable Additional Instructions: BP was 146/74 Recommend to follow up with her PCP.
== END 2019-08-19 18:30 | disposition left against medical advice (07) ==
LOC: ED 16:05
DX: M79.89 Other specified soft tissue disorders (principal)
CPT/HCPCS: 99282